=== PATIENT | male | born 1955 | race Caucasian/White ===

== ENCOUNTER 2018-12-05 10:40 | Inpatient (IN) | payer OTHER ==
[2018-12-05] MEDS ORDERED: NS 500 ML IV ONE (12:01)
[2018-12-05] MEDS ORDERED: IPRATROPIUM/ALBUTEROL 3 ML DEYVIAL IH ONE (12:01)
[2018-12-05] MEDS ORDERED: methylPREDNISolone SOD SUCC 125 MG/2 ML VIAL IVP ONE (12:01)
--- NOTE | 2018-12-05 12:01 | EDPHY ---
H & P Stated Complaint: Cough x 1 month Source: Patient Exam Limitations: No limitations - Personal History Current Tetanus Diphtheria and Acellular Pertussis (TDAP): Yes - Medical/Surgical History Hx Asthma: No Hx Chronic Respiratory Disease: No Hx Diabetes: Yes Hx Cardiac Disease: Yes Hx Renal Disease: Yes Hx Cirrhosis: No Hx Alcoholism: No Hx HIV/AIDS: No Hx Splenectomy or Spleen Trauma: No Other PMH: R Kidney Removed (Cancer), High Cholesterol, Hypertention, DM 2 - Social History Smoking Status: Never smoked Time Seen by Provider: 12/05/18 11:58 HPI/ROS: HPI: This is a 63-year-old male who presents with Chief Complaint: Cough x1 month Location: Chest Quality: Cough Duration: 1 month Signs and Symptoms: no shortness of breath at rest, no shortness of breath on exertion,+ productive cough white phlegm, no chest pain, no palpitations, no lower extremity edema, no wheezing, no orthopnea, no paroxysmal nocturnal dyspnea, no fever, no injury/trauma, no hemoptysis, no carpal pedal spasms Timing: Worsening Severity: Moderate Context: Patient has a history of hypertension, diabetes mellitus type 2, environmental exposure to dust with low oxygen but not requiring supplemental oxygen at this time presents with complaints of productive cough of white phlegm over the last 1 thing that has been slowly worsening. He reports that he coughs so hard that he vomits. Denies recent long distance travel, nonsmoker , no lower extremity edema. He was treated for a sinus infection with 10 days of antibiotics approximately 2 weeks ago. He cannot remember the name of the antibiotic. He denies any nasal congestion or upper respiratory symptoms at this time. Patient reports that he has "lots of meds" but cant remember them. Modifying Factors: See above Comment: ROS: A comprehensive 10 system review of systems is otherwise negative aside from elements mentioned in the history of present illness. MEDICAL/SURGICAL/SOCIAL HISTORY: Medical/Surgical history: R Kidney Removed (Cancer), High Cholesterol, Hypertention, DM 2 Social history: Never smoked. . CONSTITUTIONAL: Pleasant ill but nontoxic-appearing elderly white male, has a full white cervantes, awake and alert, no obvious distress HEENT: Atraumatic and normocephalic, PERRL, EOMI. Nares patent; no rhinorrhea; no nasal mucosal edema. Tympanic membranes clear. Oropharynx clear, no exudate and moist pink mucosa. Airway patent. No lymphadenopathy. No meningismus. Cardiovascular: Normal S1/S2, regular rate, regular rhythm, without murmur rub or gallop. PULMONARY/CHEST: Symmetrical and nontender. Clear to auscultation bilaterally diminished bibasilarly. Good air movement. No accessory muscle usage. ABDOMEN: Soft, nondistended, nontender, no rebound, no guarding, no peritoneal signs, no masses or organomegaly. No CVAT. EXTREMITIES: 2/2 pulses, strength 5/5, no deformities, no clubbing, no cyanosis or edema. NEUROLOGICAL: no focal neuro deficits. GCS 15. SKIN: Warm and dry, no erythema. no rash. Good capillary refill. (Veronica Casillas) Constitutional: Initial Vital Signs Temperature (C) 36.7 C 12/05/18 10:44 Heart Rate 107 H 12/05/18 10:44 Respiratory Rate 18 12/05/18 10:44 Blood Pressure 152/93 H 12/05/18 10:44 O2 Sat (%) 91 L 12/05/18 10:44 O2 Delivery Mode Room Air O2 (L/minute) 2 Allergies/Adverse Reactions: No Known Allergies Allergy (Unverified 12/05/18 10:43) Home Medications: Medication Instructions Recorded Fluticasone Propionate [Flovent 2 puffs PO BID 12/05/18 Hfa] Pioglitazone HCl 30 mg PO DAILY 12/05/18 metFORMIN HCL [Metformin HCl ER] 2,000 mg PO DAILY@1800 12/05/18 Albuterol Hfa Anes Only [Proair 2 puffs IH QID PRN #1 mdi 12/07/18 Hfa Icu (*)] Amoxicillin/Clavulanate Pot 875 mg PO BID #6 tab 12/07/18 [Augmentin 875 MG TAB (*)] Benzonatate [Tessalon Pearles] 200 mg PO TID PRN #30 cap 12/07/18 predniSONE 40 mg PO DAILY #6 tablet 12/07/18 Medical Decision Making ED Course/Re-evaluation: Vital signs reviewed and show heart rate of 107 and O2 sats 87-91% on room air and dropped to 86% with exertion. IV access, laboratory studies, chest x-ray, respiratory pathogen panel ordered Patient given 500 cc normal saline, DuoNeb, IV Solu-Medrol 125 mg, Tessalon Perles 200 mg 1243: Notified by RN that patient coughs so hard that he vomited. IV promethazine 12.5 mg given 1253: Chest x-ray radiology read shows: Retrocardiac opacity, as well as reticular opacities in the right infrahilar region. These findings probably represent atelectasis given low inspiratory volume, though would correlate with symptoms of pneumonia. Blood cultures and IV Rocephin/Zithromax given 1303: Notified by tech that D-dimer specimen rejected. Redrawn. 1318: Labs reviewed. WBC 12 K with left shift, sodium 134, potassium 4.8, creatinine 0.8, glucose 202, pro BNP 313 1338: D-dimer elevated; CTA chest ordered 1500: Called by radiologist, Dr. Phelps, who advised that CTA shows no pulmonary embolism, does show interstitial lung disease changes, hiatal hernia, atelectasis 1500:ED decision to consult hospitalist for community-acquired pneumonia and hypoxia. Spoke with Dr. Mata who kindly agrees to admit patient and provide further care. O2 sats currently 92% on 2 L nasal cannula. This patient was seen under the supervision of my secondary supervising physician. I evaluated care for this patient independently. (Veronica Casillas) Differential Diagnosis: Shortness of breath including but not limited to pulmonary infectious process, COPD, asthma, pulmonary embolus and congestive heart failure. (Veronica Casillas) Other Provider: The patient was evaluated and managed by the Physician Contracting Support Specialist. My co- signature indicates that I have reviewed this chart and I agree with the findings and plan of care as documented. I am the secondary supervising physician. (Fe Lewis) - Data Points Laboratory Results: Laboratory Results 12/05/18 12:33 12/05/18 12:33 Medications Given: Discontinued Medications Acetaminophen (Tylenol) 650 mg PO Q4HRS PRN PRN Reason: Pain, Mild/Fever, Can Take PO Stop: 06/03/19 17:03 Last Admin: 12/07/18 07:29 Dose: 650 mg Albuterol/Ipratropium (Duoneb) 3 ml IH EDNOW ONE Stop: 12/05/18 12:02 Last Admin: 12/05/18 12:27 Dose: 3 ml Albuterol/Ipratropium (Duoneb) 3 ml IH QID [facility] Stop: 06/03/19 20:59 Last Admin: 12/07/18 11:37 Dose: Not Given Benzonatate (Tessalon Pearles) 200 mg PO EDNOW ONE Stop: 12/05/18 12:04 Last Admin: 12/05/18 12:28 Dose: 200 mg Benzonatate (Tessalon Pearles) 200 mg PO TID PRN PRN Reason: Cough, Mild Stop: 06/03/19 17:08 Last Admin: 12/06/18 20:11 Dose: 200 mg Enoxaparin Sodium (Lovenox) 40 mg SC DAILY [facility] Stop: 06/03/19 18:44 Last Admin: 12/07/18 08:48 Dose: 40 mg Fluticasone Propionate (Flovent Hfa) 2 puffs IH BID [facility] Stop: 06/03/19 20:59 Last Admin: 12/07/18 10:56 Dose: 2 puffs Guaifenesin (Robitussin Oral Liquid 200mg/10ml) 200 mg PO Q4HRS PRN PRN Reason: Cough, Mild Stop: 06/04/19 20:11 Last Admin: 12/07/18 02:10 Dose: 200 mg Sodium Chloride (Ns) 500 mls @ 1,000 mls/hr IV EDNOW ONE PRN Reason: Protocol Stop: 12/05/18 12:30 Last Admin: 12/05/18 12:27 Dose: 500 mls Azithromycin 500 mg/ Dextrose 255 mls @ 255 mls/hr IV EDNOW ONE PRN Reason: Protocol Stop: 12/05/18 13:52 Last Admin: 12/05/18 15:02 Dose: 255 mls Ceftriaxone Sodium 2 gm/ (Sodium Chloride) 50 mls @ 100 mls/hr IV EDNOW ONE PRN Reason: Protocol Stop: 12/05/18 13:22 Last Admin: 12/05/18 14:43 Dose: 50 mls Sodium Chloride (Ns) 1,000 mls @ 100 mls/hr IV CONT NETO Stop: 06/03/19 17:14 Last Admin: 12/07/18 00:48 Dose: 1,000 mls Azithromycin 500 mg/ Sodium (Chloride) 255 mls @ 255 mls/hr IV DAILY NETO PRN Reason: Protocol Stop: 01/05/19 08:59 Last Admin: 12/07/18 07:29 Dose: 255 mls Ceftriaxone Sodium/Dextrose (Rocephin 1 Gm (Premix)) 50 mls @ 100 mls/hr IV DAILY [facility] Stop: 01/05/19 15:59 Last Admin: 12/07/18 08:46 Dose: 50 mls Insulin Human Lispro (Humalog Lispro) 0 unit SC TIDMEAL NETO PRN Reason: Protocol Stop: 06/03/19 17:59 Last Admin: 12/07/18 12:59 Dose: 6 units Insulin Human Lispro (Humalog Lispro) 8 unit SC ONCE ONE Stop: 12/05/18 23:38 Last Admin: 12/05/18 23:50 Dose: 8 units Methylprednisolone Sodium Succinate (Solu-Medrol) 125 mg IVP EDNOW ONE Stop: 12/05/18 12:02 Last Admin: 12/05/18 12:27 Dose: 125 mg Pioglitazone HCl (Actos) 30 mg PO DAILY NETO Stop: 06/04/19 08:59 Last Admin: 12/07/18 08:48 Dose: 30 mg Prednisone (Prednisone) 40 mg PO ONCE ONE Stop: 12/07/18 14:01 Last Admin: 12/07/18 14:24 Dose: 40 mg Promethazine HCl (Phenergan) 12.5 mg IVP EDNOW ONE Stop: 12/05/18 12:48 Last Admin: 12/05/18 12:52 Dose: 12.5 mg Departure - Departure Disposition: [facility] Acute Clinical Impression: Hypoxia, Interstitial lung disease, Hiatal hernia without gangrene and obstruction Community acquired pneumonia Qualifiers: Laterality: left Lung location: lower lobe of lung Qualified Code(s): J18.1 - Lobar pneumonia, unspecified organism Condition: Fair
[2018-12-05] MEDS ORDERED: BENZONATATE 100 MG CAP PO ONE (12:03)
[2018-12-05 12:43] LABS: PLATELET COUNT 257 10^3/uL (150-400)
[2018-12-05] MEDS ORDERED: PROMETHAZINE HCL 25 MG/ML INJ IVP ONE (12:47)
[2018-12-05] MEDS ORDERED: AZITHROMYCIN IV 500 MG in D5W 250 ML IV ONE (12:53)
[2018-12-05] MEDS ORDERED: IOPAMIDOL (ISOVUE 370) 100 ML BTL IV ONE (13:42)
[2018-12-05] MEDS ORDERED: ONDANSETRON DISINTEGRATING 4 MG TAB PO PRN (17:04)
[2018-12-05] MEDS ORDERED: ONDANSETRON 4 MG/2 ML VIAL IVP PRN (17:04)
[2018-12-05] MEDS ORDERED: D50W 25 GM/50 ML SYR IVP PRN (17:07)
[2018-12-05] MEDS ORDERED: PROMETHAZINE HCL 25 MG/ML INJ IVP PRN (17:09)
--- NOTE | 2018-12-05 17:20 | PDGENHP ---
<Mar Mark - Last Filed: 12/05/18 18:47> History and Physical - Chief Complaint Cough for one month - History of Present Illness 63 y/o male with history of hypertension and diabetes II presents with a productive cough that began approximately one month ago. He produces white phlegm and sometimes he coughs so hard he vomits. Denies hematochezia. He reports having cold-like symptoms (nasal congestion and cough) a month ago but didn't do much about it until 2 weeks ago where he went to his PCP in [place] (Dr. Belkys Hewitt) and was diagnosed with a sinus infection; he was given a 10-day course of antibiotics. He denies nasal congestion now but continues to have a cough. For the past week, he has attempted daily use of cough syrup. Endorses exertional shortness of breath that began around the same time of his cough. It is alleviated with rest. Denies orthopnea or bilateral lower extremity edema or tenderness. No chest pains. He is being admitted for further diagnostic work-up and monitoring. Past Medical/Surgical 1. Hypertension 2. Hyperlipidemia 3. Diabetes II 4. Right kidney removed (cancer) Social 1. , lives in [place]. 2. Denies tobacco or illicit drug use. Denies alcohol use. 3. 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 History Information - Allergies/Home Medication List Allergies/Adverse Reactions: No Known Allergies Allergy (Unverified 12/05/18 10:43) Home Medications: Fluticasone Propionate [Flovent Hfa] 2 puffs PO BID 12/05/18 [Last Taken ] Pioglitazone HCl 30 mg PO DAILY 12/05/18 [Last Taken 12/05/18] metFORMIN HCL [Metformin HCl ER] 2,000 mg PO DAILY@1800 12/05/18 [Last Taken 05/17] I have personally reviewed and updated: family history, medical history, social history, surgical history Past Medical History: See HPI list - Surgical History Additional surgical history: See HPI list - Family History Positive for: lung disease (Father) - Social History Smoking Status: Never smoked Alcohol Use: Sober Drug Use: None Review of Systems Review of Systems: ROS: 10pt was reviewed & negative except for what was stated in HPI & below Constitutional: Reports: diaphoresis, recent illness EENMT: Reports: no symptoms Cardiac: Reports: no symptoms Respiratory: Reports: cough, shortness of breath (Exertional) Gastrointestinal: Reports: vomitting (With hard coughing), diarrhea, nausea ( Mild) Genitourinary: Reports: no symptoms Muscolosketal: Reports: no symptoms Skin: Reports: no symptoms Neurological: Reports: no symptoms Hematologic/Lymphatic: Reports: no symptoms Immunologic/Allergy: Reports: no symptoms Physical Exam Physical Exam: Lab data and imaging reviewed Temp Pulse Resp BP Pulse Ox 37.0 C 102 H 16 136/81 H 92 12/05/18 16:45 12/05/18 16:45 12/05/18 16:45 12/05/18 16:45 12/05/18 16:45 Constitutional: no apparent distress, appears nourished, not in pain Eyes: PERRL, anicteric sclera, EOMI Ears, Nose, Mouth, Throat: moist mucous membranes, hearing normal, ears appear normal, no oral mucosal ulcers Cardiovascular: regular rate and rhythym, no murmur, rub, or gallop, No edema Peripheral Pulses: 2+: dorsalis-pedis (R) (Radial 2+), dorsalis-pedis (L) ( Radial 2+) Respiratory: reduced air movement (Bilateral lower lobes) Gastrointestinal: normoactive bowel sounds, soft, non-tender abdomen, no palpable masses Genitourinary: no bladder fullness, no bladder tenderness Skin: warm, normal color, no rashes or abrasions, no fluctuance, no induration, No mottled Musculoskeletal: full muscle strength, no muscle tenderness, normal joint ROM, no joint effusions Neurologic: AAOx3, sensation intact bilaterally, CN II-XII Intact Psychiatric: interacting appropriately, not anxious, not encephalopathic, thought process linear Lymph, Heme, Immunologic: no cervical LAD, no supraclavicular LAD Lab Data & Imaging Review 12/05/18 12:33 12/05/18 12:33 WBC 12.32 10^3/uL (3.80-9.50) H 12/05/18 12:33 RBC 6.08 10^6/uL (4.40-6.38) 12/05/18 12:33 Hgb 16.6 g/dL (13.7-17.5) 12/05/18 12:33 Hct 51.7 % (40.0-51.0) H 12/05/18 12:33 MCV 85.0 fL (81.5-99.8) 12/05/18 12:33 MCH 27.3 pg (27.9-34.1) L 12/05/18 12:33 MCHC 32.1 g/dL (32.4-36.7) L 12/05/18 12:33 RDW 14.7 % (11.5-15.2) 12/05/18 12:33 Plt Count 257 10^3/uL (150-400) 12/05/18 12:33 MPV 10.0 fL (8.7-11.7) 12/05/18 12:33 Neut % (Auto) 79.3 % (39.3-74.2) H 12/05/18 12:33 Lymph % (Auto) 8.5 % (15.0-45.0) L 12/05/18 12:33 [place] % (Auto) 10.8 % (4.5-13.0) 12/05/18 12:33 Eos % (Auto) 0.4 % (0.6-7.6) L 12/05/18 12:33 Baso % (Auto) 0.5 % (0.3-1.7) 12/05/18 12:33 Nucleat RBC Rel Count 0.0 % (0.0-0.2) 12/05/18 12:33 Absolute Neuts (auto) 9.77 10^3/uL (1.70-6.50) H 12/05/18 12:33 Absolute Lymphs (auto) 1.05 10^3/uL (1.00-3.00) 12/05/18 12:33 Absolute Monos (auto) 1.33 10^3/uL (0.30-0.80) H 12/05/18 12:33 Absolute Eos (auto) 0.05 10^3/uL (0.03-0.40) 12/05/18 12:33 Absolute Basos (auto) 0.06 10^3/uL (0.02-0.10) 12/05/18 12:33 Absolute Nucleated RBC 0.00 10^3/uL (0-0.01) 12/05/18 12:33 Immature Gran % 0.5 % (0.0-1.1) 12/05/18 12:33 Immature Gran # 0.06 10^3/uL (0.00-0.10) 12/05/18 12:33 D-Dimer 3.58 ug/mLFEU (0.00-0.50) H 12/05/18 13:00 Sodium 134 mEq/L (135-145) L 12/05/18 12:33 Potassium 4.8 mEq/L (3.5-5.2) 12/05/18 12:33 Chloride 100 mEq/L (97-110) 12/05/18 12:33 Carbon Dioxide 25 mEq/l (22-31) 12/05/18 12:33 Anion Gap 9 mEq/L (6-14) 12/05/18 12:33 BUN 13 mg/dL (7-23) 12/05/18 12:33 Creatinine 0.8 mg/dL (0.7-1.3) 12/05/18 12:33 Estimated GFR > 60 12/05/18 12:33 Glucose 223 mg/dL (70-100) H 12/05/18 12:33 Calcium 9.9 mg/dL (8.5-10.4) 12/05/18 12:33 NT-Pro-B Natriuret Pep 313 pg/mL (0-125) H 12/05/18 12:33 Assessment & Plan Assessment: 63 y/o male presenting with one month of productive cough and hypoxia on room air. He reports for a few years now, he has been told of his low oxygen level and he figured he would need to have supplemental oxygen someday. He was recently treated for his sinus infection but continues to experience a cough. 1. Community acquired pneumonia: s/p sinus infection. CXR and chest/thorax CTA suggest pneumonia and underlying interstitial lung disease, no pulmonary embolism. Mild leukocytosis (12.32), elevation of d-dimer (3.58), acute hypoxia (87% RA --> 92% 2LNC). Respiratory PCR negative. -Blood cultures pending -Procalcitonin pending -Received Rocephin 2 gm IV and Azithromycin 500 mg IV in ED; he will receive the same medications tomorrow QD -Cont pulse ox -Duoneb treatments QID -IVF -May give Tessalon Pearles for his cough -May given Zofran and/or Phenergan for nausea -Incentive spirometry 2. Acute hypoxemic respiratory failure: currently requires 2L NC to oxygenate above 90%. No respiratory distress. -See above, cont pulse ox monitoring -Would consider room air challenge tomorrow afternoon/evening -Incentive spirometry; imaging revealed atelectasis 3. Diabetes: he is unsure what his most recent A1c is but he thinks it might be 8%. He uses an insulin pen BID, metformin, and pioglitazone -He will be placed on an insulin sliding scale -Holding his home diabetic medications for the time being -Checking his A1c; an uncontrolled diabetic has the potential for delayed healing 4. Hypertension: this is stable for now. He apparently takes many medications but cannot remember these. Continue to monitor his BP and notify detention attendant physician should there be a significant change in blood pressure or symptoms arise. 5. Hyperlipidemia: see hypertension. 6. Hyponatremic (134): this is mild, continue to monitor. IVF. Diet: Carb-controlled VTE ppx: SCDs, Lovenox subq Code: Full Dispo: Admit to inpatient <Duy Mata - Last Filed: 12/05/18 21:22> History and Physical - History of Present Illness Review of Systems Review of Systems: Physical Exam Physical Exam: Temp Pulse Resp BP Pulse Ox 37.4 C 112 H 18 143/87 H 92 12/05/18 20:00 12/05/18 20:00 12/05/18 20:00 12/05/18 20:00 12/05/18 20:00 O2 (L/minute) 2 Lab Data & Imaging Review 12/05/18 12:33 12/05/18 12:33 WBC 12.32 10^3/uL (3.80-9.50) H 12/05/18 12:33 RBC 6.08 10^6/uL (4.40-6.38) 12/05/18 12:33 Hgb 16.6 g/dL (13.7-17.5) 12/05/18 12:33 Hct 51.7 % (40.0-51.0) H 12/05/18 12:33 MCV 85.0 fL (81.5-99.8) 12/05/18 12:33 MCH 27.3 pg (27.9-34.1) L 12/05/18 12:33 MCHC 32.1 g/dL (32.4-36.7) L 12/05/18 12:33 RDW 14.7 % (11.5-15.2) 12/05/18 12:33 Plt Count 257 10^3/uL (150-400) 12/05/18 12:33 MPV 10.0 fL (8.7-11.7) 12/05/18 12:33 Neut % (Auto) 79.3 % (39.3-74.2) H 12/05/18 12:33 Lymph % (Auto) 8.5 % (15.0-45.0) L 12/05/18 12:33 [place] % (Auto) 10.8 % (4.5-13.0) 12/05/18 12:33 Eos % (Auto) 0.4 % (0.6-7.6) L 12/05/18 12:33 Baso % (Auto) 0.5 % (0.3-1.7) 12/05/18 12:33 Nucleat RBC Rel Count 0.0 % (0.0-0.2) 12/05/18 12:33 Absolute Neuts (auto) 9.77 10^3/uL (1.70-6.50) H 12/05/18 12:33 Absolute Lymphs (auto) 1.05 10^3/uL (1.00-3.00) 12/05/18 12:33 Absolute Monos (auto) 1.33 10^3/uL (0.30-0.80) H 12/05/18 12:33 Absolute Eos (auto) 0.05 10^3/uL (0.03-0.40) 12/05/18 12:33 Absolute Basos (auto) 0.06 10^3/uL (0.02-0.10) 12/05/18 12:33 Absolute Nucleated RBC 0.00 10^3/uL (0-0.01) 12/05/18 12:33 Immature Gran % 0.5 % (0.0-1.1) 12/05/18 12:33 Immature Gran # 0.06 10^3/uL (0.00-0.10) 12/05/18 12:33 D-Dimer 3.58 ug/mLFEU (0.00-0.50) H 12/05/18 13:00 Sodium 134 mEq/L (135-145) L 12/05/18 12:33 Potassium 4.8 mEq/L (3.5-5.2) 12/05/18 12:33 Chloride 100 mEq/L (97-110) 12/05/18 12:33 Carbon Dioxide 25 mEq/l (22-31) 12/05/18 12:33 Anion Gap 9 mEq/L (6-14) 12/05/18 12:33 BUN 13 mg/dL (7-23) 12/05/18 12:33 Creatinine 0.8 mg/dL (0.7-1.3) 12/05/18 12:33 Estimated GFR > 60 12/05/18 12:33 Glucose 223 mg/dL (70-100) H 12/05/18 12:33 POC Glucose 291 mg/dL (70-100) H 12/05/18 17:56 Calcium 9.9 mg/dL (8.5-10.4) 12/05/18 12:33 NT-Pro-B Natriuret Pep 313 pg/mL (0-125) H 12/05/18 12:33 Procalcitonin 0.30 ng/mL (0.02-0.10) H 12/05/18 12:33 Assessment & Plan Assessment: I have seen the patient and reviewed in detail with eVronica Casillas and with Fe Mark NP. The patient actually does not appear to me to have a pneumonia, has no fever and has a very normal appearing CT chest. He has acute on Chronic resp failure. He tells me he has had long standing awake hypoxemia, and was tested for sleep apnea "but I tore the mask off in the middle of the night so they couldn't finish the test" (I interpret this as sleep apnea was found but he does not recall a specific result of the test and did not want to have any further assessment at the time). He is obese, nonsmoker, no hx of 2nd hand smoke exposure, and no hx of asthma. 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 Father was a underground miner with apparent inhalation related issues. He has a few weeks of acute cough and sweats with no fever and no infiltrates on CT, no response to outpt abx. Resp path panel is negative. I believe he likely has some infection causing acute respiratory episode, but whatever it is is not showing itself well clinically or by CT. He does have a mildly elevated procalcitionin, uncertain what the significance of that is with normal CT. (I do not see mucous plugging on CT) Dx: * acute hypox resp failure * chroinc hypox resp failure (almost certainly KATERIN, likely Obesity hypovent syndr, ? other chronic lung dz, ? pulm HTN) * possible inhalation lung exposure from pulverizing road material including granite and other rocks * diabetes mellitus * obesity * essential htn My recommendations: * admission * oxygen * PFTs (I have ordered) * pulmonology consult * monitor for nocturnal resp issues (I have reviewed with resp therapy) * ? high res CT chest * ? bronch if sxs don't resolve * hold metformen for [address] angio * prn insulin for now
[2018-12-05] MEDS: INSULIN LISPRO 100 UNIT/ML SC SCH (18:29)
[2018-12-05] MEDS ORDERED: MELATONIN 3 MG TAB PO SCH (21:00)
[2018-12-05] MEDS: IPRATROPIUM/ALBUTEROL 3 ML DEYVIAL IH SCH (21:16)
[2018-12-05] MEDS: FLUTICASONE HFA 220 MCG MDI IH SCH (21:18)
[2018-12-05] MEDS: BENZONATATE 100 MG CAP PO PRN (21:47)
[2018-12-05] MEDS: ENOXAPARIN 40 MG/0.4 ML SYR SC SCH (21:47)
[2018-12-05] MEDS ORDERED: INSULIN LISPRO 100 UNIT/ML SC ONE (23:37)
[2018-12-06 04:05] LABS: PLATELET COUNT 234 10^3/uL (150-400)
[2018-12-06] MEDS: IPRATROPIUM/ALBUTEROL 3 ML DEYVIAL IH SCH ×4 (05:09→20:30)
[2018-12-06] MEDS: NS 1,000 ML IV SCH (05:42)
[2018-12-06] MEDS: INSULIN LISPRO 100 UNIT/ML SC SCH ×3 (07:52→18:16)
[2018-12-06] MEDS ORDERED: INSULIN LISPRO 100 UNIT/ML SC SCH (08:00)
[2018-12-06] MEDS: ENOXAPARIN 40 MG/0.4 ML SYR SC SCH (08:10)
[2018-12-06] MEDS: AZITHROMYCIN IV 500 MG in NS 250 ML IV SCH (08:10)
[2018-12-06] MEDS: ACETAMINOPHEN 325 MG TAB PO PRN ×3 (08:10→20:10)
[2018-12-06] MEDS: PIOGLITAZONE HCL 15 MG TAB PO SCH (08:10)
--- NOTE | 2018-12-06 08:34 | PDMN ---
Medical Necessity Medical necessity: Pt meets inpt criteria per MD order and MCG [id number], Pneumonia , Community Acquired. 63 y/o presenting w/cough and shortness of breath w/ [id number], recently given abx's outpt for sinus infection, admitted now w/ community acquired pneumonia and hypoxia (87% on RA), requiring 2LO2 to keep sats>90%, tachycardia HR 100-112 . CXR and chest CTA suggest pna and undelying interstitial lung disease. PMH includes HTN, diabetes II, Renal Ca w/R nephrectomy. Anticipate>2MN for ongoing management of above.
[2018-12-06] MEDS: FLUTICASONE HFA 220 MCG MDI IH SCH ×2 (08:48→20:28)
--- NOTE | 2018-12-06 12:46 | ASMTCMCOM ---
CM Note CM Note Notes: Patient plan of care reviewed in rounds. He is a 63 year old male admitted with cough. He has diagnosis of pneumonia. Has history of diabetes as well. No current needs identified. CM available should needs arise. Plan: TBD Date Signed: 12/06/2018 12:45 PM Electronically Signed By:Marilyn Soto RN
[2018-12-06] MEDS: BENZONATATE 100 MG CAP PO PRN (20:11)
[2018-12-06] MEDS ORDERED: guaiFENesin 200 MG/10 ML UDL PO PRN (20:12)
--- NOTE | 2018-12-06 20:13 | HOSPPROG ---
Hospitalist Progress Note Assessment/Plan: The patient is a 63-year-old male hypertension, diabetes with PMH hypertension, diabetes, 1 kidney who was admitted for acute community-acquired pneumonia. He had failed outpt Abx started for sinusitis 2 weeks ago. ASSESSMENT/PLAN: Acute bronchitis Acute hypoxemic respiratory failure, on O2 Probable KATERIN Atelectasis Morbid obesity Single kidney (h/o renal cancer) DM2 HLD HTN Hiatal hernia -Congestion is improving. SVNs, guaifenesin, O2 prn. -Pt may just have bronchitis. Continue ceftriaxone. Add guaifenesin. Continue flutter valve use. -PT/ISU. -Consider Pulm consult if resp status does not improve, since pt has h/o environmental exposures that could cause pneumonitis and such. VTE prophylaxis: Lovenox Code Status: Full code Status: Inpatient for > 2 midnight stay. Disposition: [facility] ____ SUBJECTIVE: Today the patient feels improved. He still requires oxygen. He has been expectorating. Flutter valve is very helpful. OBJECTIVE: Physical Exam: General: The patient is an obese male who is alert and in no acute distress. HEENT: normocephalic, extraocular movements intact, conjunctivae clear. Mucous membranes moist. Neck: trachea midline, no visible masses. CV: +S1/S2, RRR, no MRG. Resp: unlabored, CTAB with bibasilar rales. Abd: soft and nondistended. Musculoskeletal: Normal muscle tone/bulk. Neuro: cranial nerves II XII grossly intact. Intact gross motor and sensory function. Psych: Appropriate mood and affect affect. Skin: No pallor. No petechiae. Heme/lymph: No peripheral edema at bilateral lower extremities. Labs/Imaging/Other Tests: Personally reviewed/interpreted. Objective: Vital Signs Temp Pulse Resp BP Pulse Ox 37.2 C 96 20 125/77 H 92 12/06/18 19:46 12/06/18 19:46 12/06/18 19:46 12/06/18 19:46 12/06/18 19:46 Laboratory Results 12/06/18 03:50 12/06/18 03:50 12/05/18 12/06/18 12/07/18 05:59 05:59 05:59 Intake Total 0359 9031 Output Total 5804 575 Balance 971 [id number] - Time Spent With Patient Time Spent with Patient: greater than 35 minutes Time Spent with Patient: Greater than 35 minutes spent on this patients care, greater than 50% of time spent counseling, educating, and coordinating care regarding the above mentioned plan. ICD10 Worksheet Patient Problems: Problems Problem Status Onset Community acquired pneumonia Acute Hiatal hernia without gangrene and obstruction Acute Hypoxia Acute Interstitial lung disease Acute
[2018-12-07] MEDS: NS 1,000 ML IV SCH (00:48)
[2018-12-07] MEDS: ACETAMINOPHEN 325 MG TAB PO PRN ×2 (02:10→07:29)
[2018-12-07 05:46] LABS: PLATELET COUNT 207 10^3/uL (150-400)
[2018-12-07] MEDS: IPRATROPIUM/ALBUTEROL 3 ML DEYVIAL IH SCH ×2 (05:57→11:37)
[2018-12-07] MEDS: INSULIN LISPRO 100 UNIT/ML SC SCH ×2 (07:29→12:59)
[2018-12-07] MEDS: AZITHROMYCIN IV 500 MG in NS 250 ML IV SCH (07:29)
[2018-12-07] MEDS: ENOXAPARIN 40 MG/0.4 ML SYR SC SCH (08:48)
[2018-12-07] MEDS: PIOGLITAZONE HCL 15 MG TAB PO SCH (08:48)
[2018-12-07] MEDS: FLUTICASONE HFA 220 MCG MDI IH SCH (10:56)
[2018-12-07 12:18] VITALS: BP 135/83
[2018-12-07] MEDS ORDERED: predniSONE 20 MG TAB PO ONE (14:00)
--- NOTE | 2018-12-07 14:30 | PDDCSUM ---
Discharge Summary Discharge Summary: The patient is a 63-year-old male hypertension, diabetes with PMH hypertension, diabetes, 1 kidney who was admitted for acute community-acquired pneumonia. He had failed outpt Abx. He was admitted and started on Rocephin and Azithromycin ( high dose). He was started on Prednisone on the day of d/c. He will continue course of abx and has been transitioned to Augment. He will also cont a short course of Prednisone burst. DDX Acute bronchitis, steroids, bronchodilator Acute hypoxemic respiratory failure, on O2, now on RA Probable KATERIN Atelectasis Morbid obesity Single kidney (h/o renal cancer) DM2, Hyperglycemia. A1C is pending. He will f/u with his PCP HLD HTN Hiatal hernia Physical Exam: General: The patient is an obese male who is alert and in no acute distress. HEENT: normocephalic, extraocular movements intact, conjunctivae clear. Mucous membranes moist. Neck: trachea midline, no visible masses. CV: +S1/S2, RRR, no MRG. Resp: unlabored Abd: soft and nondistended. Musculoskeletal: Normal muscle tone/bulk. Neuro: cranial nerves II XII grossly intact. Intact gross motor and sensory function. Psych: Appropriate mood and affect affect. Skin: No pallor. No petechiae. Heme/lymph: No peripheral edema at bilateral lower extremities. Meds: see med rec f/u: with PCP on . total time spent on d/c is 35 mins.
--- NOTE | 2018-12-07 14:52 | ASDISCHSUM ---
Discharge Information Plan Status:Home with No Needs Medically Cleared to Leave:12/06/2018 Discharge Date:12/07/2018 02:46 PM CM D/C Disposition: ADT D/C Disposition:Home, Routine, Self-Care Projected Discharge Date:12/07/2018 02:46 PM Transportation at D/C: Discharge Delay Reason: Follow-Up Date:12/07/2018 02:46 PM Discharge Slot: Final Diagnosis: Placement Information Patient Contact Information Contact Name:TYRA Relationship: Address:[address] Work Phone: City:[place] Alternate Phone: State/Zip Code:[place] [address] Email: Financial Information Financial Class:BC Primary Plan Desc:BALTAZAR GAMINO PPO O Primary Plan Number:[id number] Secondary Plan Desc: Secondary Plan Number: Assessment Information LACE LACE Length of stay for Answers: 1 day current admission Acuity / Level of Answers: Yes Care: Did the patient have an inpatient admission? Comorbidities - select Answers: Diabetes (uncontrolled or all that apply controlled) Mild liver or renal disease Other Notes: HTN; HLD # of Emergency department Answers: 1-2 visits in the last 6 months Score: 9 Date Signed: 12/07/2018 02:51 PM Electronically Signed By:Marilyn Soto RN [facility] CM Progress Note CM Note CM Note Notes: Patient plan of care reviewed in rounds. He is a 63 year old male admitted with cough. He has diagnosis of pneumonia. Has history of diabetes as well. No current needs identified. CM available should needs arise. Plan: TBD Date Signed: 12/06/2018 12:45 PM Electronically Signed By:Marilyn Soto RN Intervention Information
--- NOTE | 2018-12-07 15:02 | ASMTCMCOM ---
CM Note CM Note Notes: Patient plan of care reviewed in rounds. To dc to home no needs at this time. CM avialable should needs arise. Plan: dc to home no needs. Date Signed: 12/07/2018 03:01 PM Electronically Signed By:Marilyn Soto RN
== END 2018-12-07 14:46 | disposition home or self-care (01) | DRG 193 ==
LOC: F1N 16:38
PROVIDERS: ADMIT Internal Medicine; ATTEND Internal Medicine
DX: J18.9 Pneumonia, unspecified organism (principal); J20.9 Acute bronchitis, unspecified; J96.01 Acute respiratory failure with hypoxia; G47.33 Obstructive sleep apnea (adult) (pediatric); E11.65 Type 2 diabetes mellitus with hyperglycemia; E87.1 Hypo-osmolality and hyponatremia; E66.9 Obesity, unspecified; Z68.39 Body mass index [BMI] 39.0-39.9, adult; K44.9 Diaphragmatic hernia without obstruction or gangrene; I10 Essential (primary) hypertension; Z85.528 Personal history of other malignant neoplasm of kidney; Z90.5 Acquired absence of kidney
CPT/HCPCS: 96365; J0456; J0696; J1650; J1815; J2550; J2930; J7512; Q9967

== ENCOUNTER 2018-12-30 04:26 | Inpatient (IN) | payer OTHER ==
--- NOTE | 2018-12-30 04:37 | EDPHY ---
H & P Stated Complaint: HASN'T PEED IN 2 DAYS Time Seen by Provider: 12/30/18 04:37 HPI/ROS: HPI CHIEF COMPLAINT: Nausea, vomiting, diarrhea, can't keep fluids down, decreased urine output. HISTORY OF PRESENT ILLNESS: 63-year-old male, morbidly obese, presents to the emergency room nausea vomiting and diarrhea and he has noticed over the last 2- 3 days he has had decreased urine output. Patient states that he has not fully recovered from pneumonia last month he completed a course of antibiotics. However been having ongoing nausea vomiting and diarrhea over the last 3 days and unable to tolerate p.o.. Abdominal bloating. No significant pain. Denies chest pain. Denies fever. His main concern is that he has 1 single kidney and had decreased urine output over the last 3 days with dark colored urine. He is concerned that he is dehydrated Patient arrived to the emergency room is noted be tachycardic. He is coughing. Otherwise no distress. Past Medical History: Community-acquired pneumonia, hypertension, renal cell carcinoma with 1 kidney Past Surgical History: No recent surgery history renal cell carcinoma with surgery Social History: Denies drugs alcohol tobacco. Family History: Noncontributory ROS REVIEW OF SYSTEMS: 10 Systems were reviewed and negative with the exception of the elements mentioned in the history of present illness. Exam Constitutional triage nursing summary reviewed, vital signs reviewed, awake/ alert. Tachycardic, room air sat 91%. Eyes normal conjunctivae and sclera, EOMI, PERRLA. HENT normal inspection, atraumatic, dry mucus membranes, no epistaxis, neck supple/ no meningismus, no raccoon eyes. Respiratory clear to auscultation bilaterally, normal breath sounds, no respiratory distress, no wheezing. Cardiovascular rate normal, regular rhythm, no murmur, no edema, distal pulses normal. Gastrointestinal soft, non-tender, no rebound, no guarding, normal bowel sounds, no distension, no pulsatile mass. Genitourinary no CVA tenderness. Musculoskeletal no midline vertebral tenderness, full range of motion, no calf swelling, no tenderness of extremities, no meningismus, good pulses, neurovascularly intact. Skin pink, warm, & dry, no rash, skin atraumatic. Neurologic awake, alert and oriented x 3, AAOx3, moves all 4 extremities equally, motor intact, sensory intact, CN II-XII intact, normal cerebellar, normal vision, normal speech. Psychiatric normal mood/affect. Heme/Lymph/Immune no lymphadenopathy. Differential Diagnosis: Includes but is not limited to in a particular order dehydration, electrolyte disturbance, C diff due to recent antibiotics, GI illness, volume depletion, acute kidney injury, infection, UTI. Medical Decision Making: Plan for this patient IV establishment IV fluid bolus 2 L, Zofran as needed for nausea, electrolytes, urine, EKG for tachycardia and re-evaluate, obtain stool studies. Re-evaluation: 0535: EKG interpretation by me on record in [employer] system. Impression time of EKG 5:26 a.m., sinus tach rate of 118, no acute ischemia. Labs have been reviewed, sodium is low 125, case slightly elevated. I believe the patient is volume depleted dehydrated. The patient receiving 1 L fluid. Patient need to be admitted the hospital for dehydration volume depletion. He has been having diarrhea. I have ordered stool studies. Plan for hospital admission. The patient's chest x-ray shows stability from his previous chest x-ray. I will consult the hospitalist service Dr. Rosa for admission. Patient also noted to have a elevated white blood cell count 52246 with left shift. Patient has elevated lactic acid. I believe this to be due to dehydration less likely sepsis. The patient is afebrile. Patient's main complaint nausea vomiting and diarrhea. Patient appears clinically dehydrated Patient is getting his 1st L fluid. Patient need to be admitted to the hospitalist service for dehydration nausea vomiting diarrhea I have asked for stool studies. CT scan abdomen pelvis pending for diarrhea and abdominal bloating. 6:27 a.m.. I have asked the hospitalist service to admit the patient. Spoke with Dr. Perla Cordero who accepts the admission. Plan for admission. The patient CT scan abdomen pelvis without contrast has been reviewed shows abnormal esophageal wall thickening, and abnormal lymphadenopathy which is concerning. Additionally liver cirrhosis. Also please see full dictation report faxed to me by [facility] at 6:19 a.m.. Please see the report for full details. Given the patient's dehydration, nausea, vomiting, diarrhea, abnormal electrolytes and abnormal CT scan he will be admitted to the hospitalist service for further evaluation. Patient be made NPO by the hospitalist service GI will need to see the patient. Source: Patient - Personal History Current Tetanus Diphtheria and Acellular Pertussis (TDAP): Yes - Medical/Surgical History Hx Asthma: No Hx Chronic Respiratory Disease: No Hx Diabetes: Yes Hx Cardiac Disease: Yes Hx Renal Disease: Yes Hx Cirrhosis: No Hx Alcoholism: No Hx HIV/AIDS: No Hx Splenectomy or Spleen Trauma: No Other PMH: R Kidney Removed (Cancer), High Cholesterol, Hypertention, DM 2, back surgeries, "bad disks" - Social History Smoking Status: Never smoked Constitutional: Initial Vital Signs Temperature (C) 36.7 C 12/30/18 04:32 Heart Rate 121 H 12/30/18 04:32 Respiratory Rate 16 12/30/18 04:32 Blood Pressure 157/103 H 12/30/18 04:32 O2 Sat (%) 91 L 12/30/18 04:32 O2 Delivery Mode Room Air Allergies/Adverse Reactions: No Known Allergies Allergy (Verified 12/30/18 04:31) Home Medications: Medication Instructions Recorded Benzonatate [Tessalon Pearles] 200 mg PO TID PRN #30 cap 12/07/18 Albuterol [Proventil Inhaler HFA 1 - 2 puffs IH Q4H PRN 12/30/18 (*)] Codeine Phosphate/Guaifenesin 10 ml PO Q8HRS PRN 12/30/18 [Guaifenesin-Codeine Syrup] Fluconazole [Diflucan] 200 mg PO DAILY 12/30/18 Fluticasone Hfa 220 Mcg [Flovent 2 puffs IH BID 12/30/18 220 MCG Hfa MDI (*)] Omeprazole 40 mg PO DAILY 12/30/18 guaiFENesin [Mucinex 600 MG (*)] 600 mg PO BID 12/30/18 metFORMIN SR [Glucophage XR 500 mg 2,000 mg PO DAILY@1800 12/30/18 (*)] Medical Decision Making - Diagnostics Imaging Results: Imaging Impressions Chest X-Ray 12/30/18 04:45 Impression: 1. Bilateral lower lobe linear subsegmental atelectasis. 2. No definite pneumonia. Abdomen/Pelvis CT 12/30/18 05:36 Impression: 1. Cholelithiasis without biliary ductal dilation. 2. 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 3. Nodular contour of the liver with mild hepatomegaly. Hepatic metastasis cannot be excluded. 4. Prior right nephrectomy. 5. Left perinephric fluid without nephrolithiasis or hydronephrosis. 6. Degenerative lumbar spine. Please see above findings. Attention: This CT examination is specifically designed to evaluate patients who are clinically suspected of having acute obstructive uropathy. This examination does not use radiographic contrast, and as such, provides only a limited evaluation of the abdomen, pelvis and retroperitoneum. If there is further clinical suspicion for pathological conditions other than obstructive uropathy, a complete CT evaluation of the abdomen and pelvis utilizing intravenous, oral, and rectal contrast should be considered. Preliminary report given by [facility] to Emergency Department physician, Dr. Jem Wills at 0619 hours on December 30, 2018. Final report concurs with initial preliminary interpretation. - Data Points Laboratory Results: Laboratory Results 12/30/18 04:55 12/30/18 04:55 12/30/18 04:35 Carcinoembryonic Ag 2270.00 ng/mL H ng/mL (0.00-3.00) Medications Given: Fluticasone Propionate (Flovent Hfa) 2 puffs IH BID [facility] Stop: 06/28/19 20:59 Last Admin: 12/30/18 21:49 Dose: 2 puffs Guaifenesin (Mucinex) 600 mg PO BID NETO Stop: 06/28/19 20:59 Last Admin: 12/30/18 21:49 Dose: 600 mg Hydromorphone HCl (Dilaudid) 0.5 - 1 mg IVP Q2HRS PRN PRN Reason: Pain, Severe Stop: 01/09/19 13:48 Last Admin: 12/30/18 19:24 Dose: 0.5 mg Insulin Human Lispro (Humalog Lispro) 0 unit SC TIDMEAL NETO PRN Reason: Protocol Stop: 06/28/19 07:59 Last Admin: 12/30/18 18:39 Dose: Not Given Ondansetron HCl (Zofran) 4 mg IVP Q4HRS PRN PRN Reason: Nausea/Vomiting, Can't Take PO Stop: 06/28/19 05:46 Last Admin: 12/30/18 12:33 Dose: 4 mg Discontinued Medications Hydrocodone Bitart/Acetaminophen ([place] 5/325) 1 tab PO EDNOW ONE Stop: 12/30/18 05:31 Last Admin: 12/30/18 05:36 Dose: 1 tab Sodium Chloride (Ns) 1,000 mls @ 0 mls/hr IV EDNOW ONE; Wide Open PRN Reason: Protocol Stop: 12/30/18 04:45 Last Admin: 12/30/18 05:10 Dose: 1,000 mls Sodium Chloride (Ns) 1,000 mls @ 0 mls/hr IV EDNOW ONE; Wide Open PRN Reason: Protocol Stop: 12/30/18 04:45 Last Admin: 12/30/18 05:11 Dose: 1,000 mls Ondansetron HCl (Zofran) 4 mg IVP EDNOW ONE Stop: 12/30/18 04:45 Last Admin: 12/30/18 05:11 Dose: 4 mg Departure - Departure Disposition: [facility] In[facility] Acute Clinical Impression: Dehydration, Hyponatremia Abdominal pain Qualifiers: Abdominal location: generalized Qualified Code(s): R10.84 - Generalized abdominal pain Condition: Fair
[2018-12-30] MEDS ORDERED: NS 1,000 ML IV ONE ×2 (04:44)
[2018-12-30] MEDS ORDERED: ONDANSETRON 4 MG/2 ML VIAL IVP ONE (04:44)
[2018-12-30 05:08] LABS: PLATELET COUNT 310 10^3/uL (150-400)
[2018-12-30 05:16] LABS: INR 1.2 (0.83-1.16); PROTIME(PATIENT) 15.4 SEC (12.0-15.0)
[2018-12-30] MEDS ORDERED: HYDROCODONE/APAP 5/325 TAB PO ONE (05:30)
[2018-12-30] MEDS ORDERED: ACETAMINOPHEN 325 MG TAB PO PRN ×2 (05:47→13:49)
[2018-12-30] MEDS ORDERED: IOHEXOL 300 mgI/ML (OMNIPAQUE) 150 ML BTL IV ONE (05:56)
--- NOTE | 2018-12-30 06:41 | CPEKG ---
Test Reason : OPEN Blood Pressure : / mmHG Vent. Rate : 118 BPM Atrial Rate : 118 BPM P-R Int : 128 ms QRS Dur : 079 ms QT Int : 309 ms P-R-T Axes : 221 030 030 degrees QTc Int : 434 ms Sinus or ectopic atrial tachycardia Multiple premature complexes, vent & supraven Low voltage, extremity leads Confirmed by Jem Wills ([id number]) on 12/30/2018 6:40:39 AM Referred By: Jem Wills Confirmed By:Jem Wills
--- NOTE | 2018-12-30 07:14 | PDGENHP ---
History and Physical - Chief Complaint Vomiting, diarrhea, abdominal pain - History of Present Illness 63 yo obese M w/ DM presents with nausea, vomiting, diarrhea, and abdominal pain. The patient was admitted here in November for pneumonia. He finished a course of antibiotics a few weeks ago. Over the last week he started to note difficulty tolerating PO with nausea and early satiety. Then, over the last 2-3 days, he developed vomiting, abdominal pain, dark urine, and soft, light- colored stools. He has been having about 5 loose stools daily. He continues to have a cough but denies shortness of breath or fever. In the ED his laboratory work-up is notable for hyponatremia, lactic acidosis, mild hyperbilirubinemia, and markedly elevated alkaline phosphatase. He is moderately tachycardic. A CT scan demonstrates esophageal thickening concerning for malignancy vs. esophagitis as well as possible cirrhosis. He is being admitted for further evaluation. Case discussed with ED physician Dr. Gill; records reviewed and summarized above. History Information - Allergies/Home Medication List Allergies/Adverse Reactions: No Known Allergies Allergy (Verified 12/30/18 04:31) Home Medications: Fluticasone Propionate [Flovent Hfa] 2 puffs PO BID 12/05/18 [Last Taken ] Pioglitazone HCl 30 mg PO DAILY 12/05/18 [Last Taken 12/05/18] metFORMIN HCL [Metformin HCl ER] 2,000 mg PO DAILY@1800 12/05/18 [Last Taken 05/17] I have personally reviewed and updated: family history, medical history - Past Medical History cancer, diabetes type 2 Additional medical history: Denies family hx of liver disease - Surgical History Additional surgical history: Nephrectomy - Family History Positive for: lung disease (Father) - Social History Smoking Status: Never smoked Review of Systems Review of Systems: ROS: 10pt was reviewed & negative except for what was stated in HPI & below Physical Exam Physical Exam: Temp Pulse Resp BP Pulse Ox 36.9 C 115 H 19 138/77 H 96 12/30/18 06:00 12/30/18 06:00 12/30/18 06:00 12/30/18 06:00 12/30/18 06:00 O2 (L/minute) 2 Constitutional: obese, uncomfortable Eyes: PERRL, EOMI Ears, Nose, Mouth, Throat: moist mucous membranes, no oral mucosal ulcers Cardiovascular: no murmur, rub, or gallop, tachycardia Respiratory: no respiratory distress, inspiratory crackles Gastrointestinal: normoactive bowel sounds, tenderness (Epi-gastric and supra- pubic), No guarding, No rebound, No distension Skin: warm, normal color Neurologic: AAOx3, CN II-XII Intact Psychiatric: interacting appropriately, not anxious Lab Data & Imaging Review 12/30/18 04:55 12/30/18 04:55 WBC 15.54 10^3/uL (3.80-9.50) H 12/30/18 04:55 RBC 5.51 10^6/uL (4.40-6.38) 12/30/18 04:55 Hgb 14.3 g/dL (13.7-17.5) 12/30/18 04:55 Hct 44.1 % (40.0-51.0) 12/30/18 04:55 MCV 80.0 fL (81.5-99.8) L 12/30/18 04:55 MCH 26.0 pg (27.9-34.1) L 12/30/18 04:55 MCHC 32.4 g/dL (32.4-36.7) 12/30/18 04:55 RDW 16.5 % (11.5-15.2) H 12/30/18 04:55 Plt Count 310 10^3/uL (150-400) 12/30/18 04:55 MPV 9.8 fL (8.7-11.7) 12/30/18 04:55 Neut % (Auto) Not Reported 12/30/18 04:55 Lymph % (Auto) Not Reported 12/30/18 04:55 [place] % (Auto) Not Reported 12/30/18 04:55 Eos % (Auto) Not Reported 12/30/18 04:55 Baso % (Auto) Not Reported 12/30/18 04:55 Nucleat RBC Rel Count Not Reported 12/30/18 04:55 Absolute Neuts (auto) Not Reported 12/30/18 04:55 Absolute Lymphs (auto) Not Reported 12/30/18 04:55 Absolute Monos (auto) Not Reported 12/30/18 04:55 Absolute Eos (auto) Not Reported 12/30/18 04:55 Absolute Basos (auto) Not Reported 12/30/18 04:55 Absolute Nucleated RBC Not Reported 12/30/18 04:55 Immature Gran % Not Reported 12/30/18 04:55 Seg Neutrophils % 88.0 % 12/30/18 04:55 Band Neutrophils % 0.0 % 12/30/18 04:55 Lymphocytes % 3.0 % 12/30/18 04:55 Monocytes % 9.0 % 12/30/18 04:55 Eosinophils % 0.0 % 12/30/18 04:55 Basophils % 0.0 % 12/30/18 04:55 Metamyelocytes % 0.0 % 12/30/18 04:55 Myelocytes % 0.0 % 12/30/18 04:55 Promyelocytes % 0.0 % 12/30/18 04:55 Blast Cells % 0.0 % 12/30/18 04:55 Immature Gran # Not Reported 12/30/18 04:55 Absolute Seg Neuts 13.68 10^3/uL (1.70-6.50) H 12/30/18 04:55 Absolute Band Neuts 0.00 10^3/uL (0.00-0.70) 12/30/18 04:55 Absolute Lymphocytes 0.47 10^3/uL (1.00-3.00) L 12/30/18 04:55 Absolute Monocytes 1.40 10^3/uL (0.30-0.80) H 12/30/18 04:55 Absolute Eosinophils 0.00 10^3/uL (0.03-0.40) L 12/30/18 04:55 Absolute Basophils 0.00 10^3/uL (0.02-0.10) L 12/30/18 04:55 Absolute Metamyelocyte 0.00 10^3/mL (0.00-0.00) 12/30/18 04:55 Absolute Myelocytes 0.00 10^3/mL (0.00-0.00) 12/30/18 04:55 Absolute Promyelocytes 0.00 10^3/uL (0.00-0.00) 12/30/18 04:55 Absolute Plasma Cells 0.00 10^3/uL (0.00-0.00) 12/30/18 04:55 Nucleated RBCs 0 /100 WBC (0-0) 12/30/18 04:55 Absolute Blast Cells 0.00 10^3/uL (0.00-0.00) 12/30/18 04:55 Plasma Cells % 0.0 % 12/30/18 04:55 Platelet Estimate ADEQUATE (ADEQ) 12/30/18 04:55 Microcytic Cells 1+ H 12/30/18 04:55 PT 15.4 SEC (12.0-15.0) H 12/30/18 04:55 INR 1.20 (0.83-1.16) H 12/30/18 04:55 APTT 26.7 SEC (23.0-38.0) 12/30/18 04:55 VBG Lactic Acid 3.5 mmol/L (0.7-2.1) H 12/30/18 04:55 Sodium 125 mEq/L (135-145) L 12/30/18 04:55 Potassium 5.4 mEq/L (3.5-5.2) H 12/30/18 04:55 Chloride 94 mEq/L (97-110) L 12/30/18 04:55 Carbon Dioxide 21 mEq/l (22-31) L 12/30/18 04:55 Anion Gap 10 mEq/L (6-14) 12/30/18 04:55 BUN 22 mg/dL (7-23) 12/30/18 04:55 Creatinine 0.8 mg/dL (0.7-1.3) 12/30/18 04:55 Estimated GFR > 60 12/30/18 04:55 Glucose 109 mg/dL (70-100) H 12/30/18 04:55 Serum Osmolality 268 mosmo/kg (280-297) L 12/30/18 04:55 Calcium 9.0 mg/dL (8.5-10.4) 12/30/18 04:55 Total Bilirubin 2.3 mg/dL (0.1-1.4) H 12/30/18 04:55 Conjugated Bilirubin 1.6 mg/dL (0.0-0.5) H 12/30/18 04:55 Unconjugated Bilirubin 0.7 mg/dL (0.0-1.1) 12/30/18 04:55 AST 170 IU/L (17-59) H 12/30/18 04:55 ALT 88 IU/L (21-72) H 12/30/18 04:55 Alkaline Phosphatase 1373 IU/L (38-126) H 12/30/18 04:55 Total Protein 5.9 g/dL (6.3-8.2) L 12/30/18 04:55 Albumin 3.0 g/dL (3.5-5.0) L 12/30/18 04:55 Lipase 207 IU/L (23-300) 12/30/18 04:55 Assessment & Plan Assessment: 63 yo M w/ DM presents with N/V, abdominal pain and found to have esophageal thickening and abnormal LFTs. Plan: 1. Nausea, vomiting, diarrhea, abdominal pain - Unclear etiology; considerations include colitis (recent antibiotics), esophagitis (based on CT appearance), and liver pathology noting abnormal LFTs. CT scan notable for esophageal thickening and possible cirrhosis. - RUQ U/S to further evaluate biliary system - Pain control, anti-emetics PRN - GI PCR ordered 2. Esophageal thickening - Noted on CT scan (personally reviewed/interpreted); per radiology this is suspicious for malignancy vs. esophagitis. - Maintain NPO - Will need GI consult to consider EGD 3. Abnormal LFTs - Cholestasis pattern with elevated Alk Phos and bilirubin. Dark urine and soft, light colored stools are consistent with this. Other possibilities for alk phos elevation include bone and intestinal mucosa noting esophageal thickening. - RUQ U/S for further evaluation - Monitor LFTs 4. Hyponatremia - This is most likely due to dehydration noting tachycardia and elevated lactate. Noting symptomatic hypovolemia, will prioritize rehydration over water balance at this point. - Currently receiving 2nd liter NS - Repeat BMP at 1200 5. Leukocytosis - Possibly reactive, no clear source of infection identified so far. - Observe off of antibiotics - Obtain blood cultures, UA 6. DM - He uses a combination of insulin and orals at home, but he is unsure of the insulin dosing at the moment. - Standard lispro SSI for now - Monitor BG ACHS; D50 IV PRN for hypoglycemia Diet - NPO pending GI evaluation Code - Full Ppx - SCDs Dispo - Admit under observation status
[2018-12-30] MEDS ORDERED: D50W 25 GM/50 ML SYR IVP PRN (07:29)
[2018-12-30] MEDS: INSULIN LISPRO 100 UNIT/ML SC SCH ×3 (08:35→18:39)
[2018-12-30] MEDS ORDERED: ENOXAPARIN 40 MG/0.4 ML SYR SC SCH (09:00)
--- NOTE | 2018-12-30 10:42 | HOSPPROG ---
Hospitalist Progress Note Assessment/Plan: # N/V/diarrhea - conservative treatment for now, check GI PRC # esophageal thickening, diffuse hepatic mets, markedly abnormal LFTs - discussed with Dr Hanna - likely needs EGD - will d/w oncology regarding bx of esophagus vs liver - hx nephrectomy (he is unclear if he had RCC) in [address] Peace # hypoNa - hypovolemic, cont NS, recheck BMP # hypoeK - recheck BMP # leukocytosis - BCx pending # dvt ppx - start lovenox after biopsies Subjective: seen with ; we discussed the US findings of cancer Objective: Vital Signs Temp Pulse Resp BP Pulse Ox 36.6 C 110 H 16 119/76 95 12/30/18 08:00 12/30/18 08:00 12/30/18 08:00 12/30/18 08:00 12/30/18 08:00 PT 15.4 SEC (12.0-15.0) H 12/30/18 04:55 INR 1.20 (0.83-1.16) H 12/30/18 04:55 40 mins of direct patient care prolonged time - Physical Exam Constitutional: no apparent distress, appears nourished, other (sitting in chair ) ICD10 Worksheet Patient Problems: Problems Problem Status Onset Abdominal pain Acute Dehydration Acute Hyponatremia Acute Community acquired pneumonia Acute Hiatal hernia without gangrene and obstruction Acute Hypoxia Acute Interstitial lung disease Acute
[2018-12-30] MEDS ORDERED: NS 1,000 ML IV SCH (10:45)
[2018-12-30] MEDS: ONDANSETRON 4 MG/2 ML VIAL IVP PRN (12:33)
[2018-12-30] MEDS ORDERED: HYDROCODONE/APAP 5/325 TAB PO PRN (13:49)
[2018-12-30] MEDS: HYDROmorphONE/DILAUDID 1 MG/ML INJ IVP PRN ×2 (14:05→19:24)
--- NOTE | 2018-12-30 15:56 | PDCONSULT ---
[employer] Note: Patient interviewed and examined. Chart reviewed and dictated. Briefly; 63 year old male with dysphagia, N/V and diarrhea with CT of Abdomen showing findings c/w distal esophageal CA with mets to liver. Recommend EGD, however electrolyte imbalance will need to be corrected prior to endoscopy. Please keep NPO after MN. Dr Hemphill can perform EGD tomorrow am. Satish Spears MD
--- NOTE | 2018-12-30 17:31 | GCON ---
[f rep st] CONSULTATION GI CONSULTATION DATE OF CONSULTATION: 12/30/2018 REQUESTING PHYSICIAN: Good Ledbetter MD REASON FOR CONSULTATION: Dysphagia, nausea, abdominal pain and diarrhea with abnormal CT scan of the abdomen. HISTORY OF PRESENT ILLNESS: Edi is a 63-year-old gentleman who came to the emergency room today with a several-month history of more severe anorexia, nausea, occasional vomiting and epigastric abdominal pain. He stated the symptoms started in September of last year and have been slowly progressive. Over the last 3 days, he has had nausea and vomiting and epigastric abdominal discomfort as well as dark urine and light-colored stools with up to 5 loose stools daily. He has denied any hematemesis or blood in the stool. MEDICATIONS: At home: 1. Flovent 2 puffs twice daily. 2. Pioglitazone 30 mg p.o. daily. 3. Metformin 2000 mg p.o. daily. ALLERGIES: No known drug allergies. PAST MEDICAL HISTORY: Significant for type 2 diabetes mellitus and renal carcinoma with status post nephrectomy. FAMILY HISTORY: Positive for lung disease in his father. Negative for peptic ulcer disease or GI malignancy. SOCIAL HISTORY: He is a nonsmoker. Does not consume significant quantities of alcohol or take significant NSAIDs. He resides with his in [place]. PAST ENDOSCOPY HISTORY: He had a failed colonoscopy in the past but stated he had a normal virtual colonoscopy 2 years ago at [facility]. REVIEW OF SYSTEMS: With the exception of fatigue, malaise, anorexia, nausea and vomiting, and loose stool was negative for comprehensive review of systems. OBJECTIVE: VITAL SIGNS: On my examination today, temperature 36.6, pulse 110 regular, blood pressure 119/76, respiratory rate 16. O2 saturation 96% on 2 liters per nasal cannula. GENERAL: He is an obese gentleman sitting in bed in no apparent distress. INTEGUMENT: Clear. HEENT: Head atraumatic, normocephalic. Pupils equal, round, react to light. EOMs are intact. Sclerae are nonicteric. Mucous membranes moist. Dentition fair. NECK: Supple but full. Trachea midline. LYMPHATICS: No palpable cervical or axillary adenopathy. LUNGS: Clear to percussion on auscultation. CARDIOVASCULAR: Regular rhythm and rate. Normal S1, S2 without murmur. Peripheral pulses slightly decreased bilaterally. No pedal edema. GASTROINTESTINAL: Abdomen obese. Positive bowel sounds. Distended abdomen. No liver edge or spleen tip appreciated. No fluid wave noted. No shifting dullness. No rebound. EXTREMITIES: Without deformity. NEURO: Patient is alert and oriented x3. No focal neurologic deficits. LABS: White count 15.54, hemoglobin 14.3, hematocrit 44.1, platelets 310, 000. ProTime 15.4, INR 1.2, PTT 26.7, lactic acid 3.5. Sodium 128, potassium 5.2, chloride 94, CO2 22, BUN 22, creatinine 0.8, glucose 109, calcium 9.0. Total bilirubin 2.3, conjugated 1.6, unconjugated 0.7. AST 170, ALT 88, ALP 1373, albumin 3.0, lipase 207. Urinalysis positive bilirubin, +1 protein, 5-10 white blood cells, trace epithelials, 15-25 hyaline casts, 1-5 granular casts. Abdominal and pelvic CT scan showed cholelithiasis without biliary duct dilation ; distal esophageal thickening with paraesophageal adenopathy suspicious for esophageal carcinoma with local regional metastases; nodular contour of the liver with mild hepatomegaly; hepatic metastases cannot be excluded; prior right nephrectomy; left perinephric fluid without nephrolithiasis or hydronephrosis and degenerative lumbar spine. Abdominal ultrasound revealed diffuse hepatic metastases; prior right nephrectomy; cholelithiasis with contracted gallbladder with gallbladder wall thickening and dilated common bile duct of 11 mm. IMPRESSION: 1. 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 2. Type 2 diabetes mellitus. 3. Reactive airway disease. 4. Obesity. RECOMMENDATIONS: 1. Will proceed with esophagogastroduodenoscopy later today for definitive diagnosis. Patient at increased risk for complication due to multiple medical problems as listed in assessment. 2. NPO. 3. Will follow with you. /[id number]/MODL MTDD
[2018-12-30] MEDS ORDERED: ALBUTEROL 60 PUFFS/8 GM MDI IH PRN (18:15)
[2018-12-30] MEDS ORDERED: BENZONATATE 100 MG CAP PO PRN (18:15)
[2018-12-30] MEDS ORDERED: guaiFENesin/CODEINE PHOS 10 ML UDCUP PO PRN (18:30)
--- NOTE | 2018-12-30 19:42 | GCON ---
[f rep st] CONSULTATION ONCOLOGY CONSULTATION REFERRING PHYSICIAN: Raghu Ledbetter MD REASON FOR CONSULTATION: Abnormal CT scan. Requesting physician Dr. Raghu Ledbetter. HISTORY OF PRESENT ILLNESS: The patient is a 63-year-old gentleman with a past medical history of type 2 diabetes and a renal cell carcinoma (presumably) requiring right nephrectomy in 1989, who was recently hospitalized earlier this month with a pneumonia. He presented to the emergency room this morning with odynophagia, dysphagia, and loose bowel movements. He denies nausea, but describes "food coming back up" after eating. He describes his stools as light in color with small frequent bowel movements, 5 to 6 times a day. He has some diffuse abdominal discomfort and feels bloated. He estimates losing about 10 pounds over the last month. He continues to have a cough following his pneumonia, which is mostly nonproductive. He thinks some of his upper abdominal pain may be due to coughing. A CT of the abdomen this morning demonstrated thickening of the distal esophagus with paraesophageal lymphadenopathy. The study was noncontrast due to a questionable contrast allergy. Abdominal ultrasound demonstrated numerous hepatic lesions, some gallbladder wall thickening (6 mm), and contracted gallbladder. Common bile duct dilated (11 mm). He was admitted for further evaluation. PAST MEDICAL HISTORY: His primary care provider is Dr. Belkys Hewitt. 1. Type 2 diabetes. He reports insulin use. 2. Presumed history of renal cell carcinoma, pathology not available. PAST SURGICAL HISTORY: 1. Right nephrectomy [place] [address] Peace for presumed renal cell carcinoma. He reports having some followup with Dr. Peace for a few years. I cannot find a pathology report. He never saw an oncologist. 2. Multiple back surgeries. FAMILY HISTORY: No history of malignancy. SOCIAL HISTORY: He is . He has stepchildren, but no biological children. He is a nonsmoker. He previously drank heavily, but quit in the early . 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 REVIEW OF SYSTEMS: CONSTITUTIONAL: Weight loss per HPI. No night sweats. HEENT: No vision changes. CARDIOVASCULAR: No exertional chest pain, palpitations, PND, orthopnea, or lower extremity edema. RESPIRATORY: Per HPI. GI: Per HPI. : He has had decreased urination and dark urine. MUSCULOSKELETAL: Chronic back pain. No new bony complaints. NEUROLOGIC: No headache, numbness, or weakness. LYMPH: No lymphadenopathy. HEMATOLOGIC: No bleeding or bruising. PHYSICAL EXAM: VITAL SIGNS: Blood pressure 138/86, pulse 114, respirations 18 , 94% on 2 L, and afebrile. GENERAL: An alert gentleman in no acute distress. His is present. HEENT: Mild scleral icterus. NECK: Supple. LYMPH: No cervical or supraclavicular adenopathy. Bilateral mobile axillary nodes palpable. CARDIOVASCULAR: Regular rate and rhythm. LUNGS: Clear to auscultation bilaterally. ABDOMEN: Obese. No palpable masses. No organomegaly, but limited by abdominal girth. No periumbilical nodularity. SKIN: No petechiae or ecchymoses. NEUROLOGIC: Grossly nonfocal. LABORATORY DATA: Sodium 125, potassium 5.4, chloride 94, bicarbonate 21, BUN 22 , creatinine 0.8, and glucose 109. Total bilirubin 2.3, direct 1.6, AST 170, ALT 88, alkaline phosphatase 1373, and albumin 3.0. WBC 15.5 (88% neutrophils) , hemoglobin 14.3, MCV 80, and platelets 310,000. He does not appear to have had liver function tests when he was admitted for pneumonia. RADIOLOGIC STUDIES: Per HPI. Chest x-ray: Bilateral lower lobe subsegmental atelectasis without pneumonia. IMPRESSION: 1. Distal esophageal thickening concerning for esophageal cancer. 2. Probable hepatic metastases. 3. Dilated common bile duct. Gastroenterology has consulted and plans for upper endoscopy with biopsy. I recommend a liver biopsy as well to document metastatic disease. I reviewed the radiologic findings with the patient and his , and the suspected diagnosis of metastatic esophageal cancer. We discussed the role for systemic therapy in that case, which would be guided by results of pathology. He reports the suspected contrast allergy was almost 30 years ago when he had sneezing during a CT scan. No shellfish allergy. I recommend CT chest, abdomen , and pelvis with contrast for further evaluation. His alkaline phosphatase is elevated out of proportion to his other liver function tests, and I wonder if there is a component of biliary obstruction as well. Gastroenterology is involved. I discussed with Dr. Ledbetter. Follow up with me after discharge for review of diagnostic evaluation and discussion of treatment decisions. /[id number]/MODL MTDD
[2018-12-30] MEDS: FLUTICASONE HFA 220 MCG MDI IH SCH (21:49)
[2018-12-30] MEDS: guaiFENesin 600 MG TAB.ER PO SCH (21:49)
[2018-12-31] MEDS: HYDROmorphONE/DILAUDID 1 MG/ML INJ IVP PRN ×6 (01:46→22:07)
[2018-12-31 06:00] LABS: PLATELET COUNT 269 10^3/uL (150-400)
[2018-12-31] MEDS: INSULIN LISPRO 100 UNIT/ML SC SCH ×3 (07:43→18:48)
--- NOTE | 2018-12-31 09:16 | SOAPPROG ---
SOAP Progress Note Assessment/Plan: Assessment:Plan: 1) Abnml Ct - prob esoph cancer with liver mets, needs tissue dx. EGD cancelled again today as potassium is higher then yesterday. The EGD is non- urgent. 2) Lytes - hyperkalemia, hyponatremia - needs to be improved prior to EGD 3) Diet - liquids for now 4) renal - cr up query pre-renal? discussed with Dr. Ledbetter 12/31/18 09:14 Subjective: CC - abnml Ct scan, dysphagia NPO for EGD but potassium up again Objective: Vital Signs Temp Pulse Resp BP Pulse Ox 36.8 C 115 H 18 121/67 H 90 L 12/31/18 08:07 12/31/18 08:07 12/31/18 08:07 12/31/18 08:07 12/31/18 08:07 Microbiology 12/30/18 09:30 Gastrointestinal Tract Panel (PCR) - Final Stool No Organism Detected By Pcr Laboratory Results 12/31/18 05:38 12/31/18 05:38 12/30/18 12/31/18 01/01/19 05:59 05:59 05:59 Intake Total 3000 Output Total 150 Balance 2850 PT 15.4 SEC (12.0-15.0) H 12/30/18 04:55 INR 1.20 (0.83-1.16) H 12/30/18 04:55 A+Ox3 CTA S1S2 +BS, soft ICD10 Worksheet Patient Problems: Problems Problem Status Onset Abdominal pain Acute Dehydration Acute Hyponatremia Acute Community acquired pneumonia Acute Hiatal hernia without gangrene and obstruction Acute Hypoxia Acute Interstitial lung disease Acute
[2018-12-31] MEDS ORDERED: NS 1,000 ML IV ONE (10:41)
--- NOTE | 2018-12-31 10:48 | HOSPPROG ---
Hospitalist Progress Note Assessment/Plan: # N/V - sx most c/w esophageal obstruction - EGD for further eval # esophageal thickening, diffuse hepatic mets, markedly abnormal LFTs - most c/w esophageal ca - will get WGD and liver bx for diagnosis - hx nephrectomy (he is unclear if he had RCC) in [address] # tachycardia - likely volume mediated; also consider PE but less likely and more contrast now too risky - continue to follow # recent pneumonia - likely aspiration given current pathology # hypoNa - improving with IVF # mild INOCENTE - pre-renal; also possibly DONTA # hyperK - worse again today - bolus 1L NS then recheck # leukocytosis - BCx pending # dvt ppx - start lovenox after biopsies Subjective: patient and are frustrated with having the EGD cancelled Objective: Vital Signs Temp Pulse Resp BP Pulse Ox 36.8 C 115 H 18 121/67 H 90 L 12/31/18 08:07 12/31/18 08:07 12/31/18 08:07 12/31/18 08:07 12/31/18 08:07 Microbiology 12/30/18 09:30 Gastrointestinal Tract Panel (PCR) - Final Stool No Organism Detected By Pcr Laboratory Results 12/31/18 05:38 12/30/18 12/31/18 01/01/19 05:59 05:59 05:59 Intake Total 3000 Output Total 150 Balance 2850 PT 15.4 SEC (12.0-15.0) H 12/30/18 04:55 INR 1.20 (0.83-1.16) H 12/30/18 04:[address] Hemphill high risk with ongoing tachycardia - Physical Exam Constitutional: no apparent distress, appears nourished, obese Cardiovascular: no murmur, rub, or gallop, tachycardia Respiratory: no respiratory distress, no rales or rhonchi, clear to auscultation Gastrointestinal: normoactive bowel sounds, soft, non-tender abdomen, no palpable masses ICD10 Worksheet Patient Problems: Problems Problem Status Onset Community acquired pneumonia Acute Hypoxia Acute Interstitial lung disease Acute Hiatal hernia without gangrene and obstruction Acute Dehydration Acute Hyponatremia Acute Abdominal pain Acute
[2018-12-31] MEDS: FLUCONAZOLE 100 MG TAB PO SCH (10:52)
[2018-12-31] MEDS: PANTOPRAZOLE SODIUM 40 MG TAB PO SCH (10:52)
[2018-12-31] MEDS: guaiFENesin 600 MG TAB.ER PO SCH ×2 (10:53→21:53)
[2018-12-31] MEDS: D5W NS 1,000 ML IV SCH ×2 (11:35→22:07)
[2018-12-31] MEDS: FLUTICASONE HFA 220 MCG MDI IH SCH ×2 (11:39→21:53)
--- NOTE | 2018-12-31 12:22 | SOAPPROG ---
SOAP Progress Note Assessment/Plan: Assessment: Edi is a very pleasant 63-year-old male who was found to have likely esophageal cancer with metastatic disease within the liver. 1. Presumed metastatic cancer: Based on his imaging it appears that he has an underlying esophageal primary given his think getting in symptoms. He likely has hepatic metastasis as well. We discussed that he likely will need a PEG tube given his inability to eat. His upper endoscopy was canceled today. He does have an IR consultation for evaluation of liver biopsy. 2. Decreased p.o. Intake: I feel that he likely will need a PEG tube which he finds amendable. 12/31/18 12:20 Subjective: Acute events overnight. Went for endoscopy today which was canceled due to electrolyte abnormalities. He is unable to eat and drink anything due to pain and obstruction. Objective: Vital Signs Temp Pulse Resp BP Pulse Ox 36.3 C 109 H 14 108/69 93 12/31/18 11:18 12/31/18 11:48 12/31/18 11:48 12/31/18 11:18 12/31/18 11:48 Microbiology 12/30/18 09:30 Gastrointestinal Tract Panel (PCR) - Final Stool No Organism Detected By Pcr Laboratory Results 12/31/18 05:38 12/31/18 11:10 12/30/18 12/31/18 01/01/19 05:59 05:59 05:59 Intake Total 3000 Output Total 150 Balance 2850 PT 15.4 SEC (12.0-15.0) H 12/30/18 04:55 INR 1.20 (0.83-1.16) H 12/30/18 04:55 General: Pleasant, conversant no acute distress HEENT: Oropharynx clear extraocular movements are intact nasal cannula in place Cardiovascular: Regular rate and rhythm Pulmonary: Clear to auscultation bilaterally Abdomen: Soft nontender nondistended bowel sounds are present Extremities: No cyanosis or clubbing Skin: No skin lesions ICD10 Worksheet Patient Problems: Problems Problem Status Onset Abdominal pain Acute Dehydration Acute Hyponatremia Acute Community acquired pneumonia Acute Hiatal hernia without gangrene and obstruction Acute Hypoxia Acute Interstitial lung disease Acute
[2018-12-31] MEDS ORDERED: SODIUM POLY SULF 15 GM/60 ML BOTTLE PO ONE ×2 (13:42→17:00)
--- NOTE | 2018-12-31 16:09 | PDMN ---
Medical Necessity Medical necessity: MCG: M505 abd pain undg. 63 yr old presents with N/V/D, abd pain., X 1week. last two days vomiting abd michelle and dark urine loose stools. cough, pt is hyponatremic, tachycardic, CT scan shows esophageal thickening , poss cirrhosis, - LFT's abnormal- leukocytosis, DM- further monitoring and eval needed--- pt status changed to INPT 12/31/18 - pt EGD cancelled due to increasing tachycardia, rising K, not making urine- hypovolemia + DONTA likely- further eval needed - GI consult pend.
[2018-12-31] MEDS ORDERED: NS IV ONE (17:17)
[2018-12-31] MEDS ORDERED: FUROSEMIDE IV ONE (17:17)
--- NOTE | 2018-12-31 17:18 | PDCONSULT ---
Public Address Technician Note: Nephrology Consult: Reason for Consult: INOCENTE Consulting Physician: Khloe HPI: 63yo M with PMH significant for obesity, DM II, and ? RCC s/p nephrectomy in 1989 and recent admission with pneumonia now admitted with nausea/vomiting/ diarrhea/abdominal pain and difficulty eating. Non-contrast CT scan on admission showed thickening of the esophagus concerning for malignancy and findings in the liver concerning for liver mets. Abdominal ultrasound also suggestive of liver mets. Since admission, Cr ceci from 0.9 --> 1.4 and urine output has been marginal. K elevated in the mid 5's. Patient currently reports diaphoresis, but denies fevers, shortness of breath, significant abdominal pain , chest pain. He has had a cough since his admission with pneumonia and some back pain related to that. Since admission, the symptoms that brought him in have improved. He was given kayexalate for the hyperkalemia and has not had a bowel movement since then. Now has a alfaro catheter. Patient reports taking a lot of NSAIDs prior to admission. PMH: DMII, obesity, RCC s/p nephrectomy, PNA PSH: nephrectomy 1989 Family Hx: non known family history of kidney problems Social Hx: non-smoker, ROS: 11 systems reviewed and negative except for that discussed in HPI above Temp Pulse Resp BP Pulse Ox 36.6 C 121 H 17 165/80 H 95 12/31/18 15:31 12/31/18 15:31 12/31/18 15:31 12/31/18 15:31 12/31/18 15:31 O2 (L/minute) 2 Exam: General- awake, alert, well-appearing, NAD Eyes- anicteric sclera, no conjunctival injection HEENT- MMM, no gross oral lesions, large cervantes CV- tachycardic, regular rate, no g/m/r Pulm- CTAB, no wheezes or rales, breathing comfortably on O2 NC Abd- obese, soft, non-tender, +BS - alfaro catheter in place with small amount of dark urine Skin- no rashes or bruising on exposed skin Extrem- 1-2+ lower extremity edema Psych- pleasant, answers questions appropriately WBC 12.46 10^3/uL (3.80-9.50) H 12/31/18 05:38 RBC 4.87 10^6/uL (4.40-6.38) 12/31/18 05:38 Hgb 12.5 g/dL (13.7-17.5) L 12/31/18 05:38 POC Hgb 16.7 gm/dL (13.7-17.5) 12/30/18 08:21 Hct 41.3 % (40.0-51.0) 12/31/18 05:38 POC Hct 49 % (40-51) 12/30/18 08:21 MCV 84.8 fL (81.5-99.8) 12/31/18 05:38 MCH 25.7 pg (27.9-34.1) L 12/31/18 05:38 MCHC 30.3 g/dL (32.4-36.7) L 12/31/18 05:38 RDW 16.2 % (11.5-15.2) H 12/31/18 05:38 Plt Count 269 10^3/uL (150-400) 12/31/18 05:38 MPV 10.0 fL (8.7-11.7) 12/31/18 05:38 Neut % (Auto) 82.2 % (39.3-74.2) H 12/31/18 05:38 Lymph % (Auto) 5.5 % (15.0-45.0) L 12/31/18 05:38 [place] % (Auto) 11.3 % (4.5-13.0) 12/31/18 05:38 Eos % (Auto) 0.2 % (0.6-7.6) L 12/31/18 05:38 Baso % (Auto) 0.2 % (0.3-1.7) L 12/31/18 05:38 Nucleat RBC Rel Count 0.0 % (0.0-0.2) 12/31/18 05:38 Absolute Neuts (auto) 10.24 10^3/uL (1.70-6.50) H 12/31/18 05:38 Absolute Lymphs (auto) 0.68 10^3/uL (1.00-3.00) L 12/31/18 05:38 Absolute Monos (auto) 1.41 10^3/uL (0.30-0.80) H 12/31/18 05:38 Absolute Eos (auto) 0.02 10^3/uL (0.03-0.40) L 12/31/18 05:38 Absolute Basos (auto) 0.03 10^3/uL (0.02-0.10) 12/31/18 05:38 Absolute Nucleated RBC 0.00 10^3/uL (0-0.01) 12/31/18 05:38 Immature Gran % 0.6 % (0.0-1.1) 12/31/18 05:38 Seg Neutrophils % 88.0 % 12/30/18 04:55 Band Neutrophils % 0.0 % 12/30/18 04:55 Lymphocytes % 3.0 % 12/30/18 04:55 Monocytes % 9.0 % 12/30/18 04:55 Eosinophils % 0.0 % 12/30/18 04:55 Basophils % 0.0 % 12/30/18 04:55 Metamyelocytes % 0.0 % 12/30/18 04:55 Myelocytes % 0.0 % 12/30/18 04:55 Promyelocytes % 0.0 % 12/30/18 04:55 Blast Cells % 0.0 % 12/30/18 04:55 Immature Gran # 0.08 10^3/uL (0.00-0.10) 12/31/18 05:38 Absolute Seg Neuts 13.68 10^3/uL (1.70-6.50) H 12/30/18 04:55 Absolute Band Neuts 0.00 10^3/uL (0.00-0.70) 12/30/18 04:55 Absolute Lymphocytes 0.47 10^3/uL (1.00-3.00) L 12/30/18 04:55 Absolute Monocytes 1.40 10^3/uL (0.30-0.80) H 12/30/18 04:55 Absolute Eosinophils 0.00 10^3/uL (0.03-0.40) L 12/30/18 04:55 Absolute Basophils 0.00 10^3/uL (0.02-0.10) L 12/30/18 04:55 Absolute Metamyelocyte 0.00 10^3/mL (0.00-0.00) 12/30/18 04:55 Absolute Myelocytes 0.00 10^3/mL (0.00-0.00) 12/30/18 04:55 Absolute Promyelocytes 0.00 10^3/uL (0.00-0.00) 12/30/18 04:55 Absolute Plasma Cells 0.00 10^3/uL (0.00-0.00) 12/30/18 04:55 Nucleated RBCs 0 /100 WBC (0-0) 12/30/18 04:55 Absolute Blast Cells 0.00 10^3/uL (0.00-0.00) 12/30/18 04:55 Plasma Cells % 0.0 % 12/30/18 04:55 Platelet Estimate ADEQUATE (ADEQ) 12/30/18 04:55 Microcytic Cells 1+ H 12/30/18 04:55 PT 15.4 SEC (12.0-15.0) H 12/30/18 04:55 INR 1.20 (0.83-1.16) H 12/30/18 04:55 APTT 26.7 SEC (23.0-38.0) 12/30/18 04:55 VBG Lactic Acid 3.5 mmol/L (0.7-2.1) H 12/30/18 04:55 POC Sodium 128 mEq/L (135-145) L 12/30/18 08:21 Sodium 130 mEq/L (135-145) L 12/31/18 16:40 POC Potassium 5.2 mEq/L (3.3-5.0) H 12/30/18 08:21 Potassium 5.5 mEq/L (3.5-5.2) H 12/31/18 16:40 POC Chloride 94 mEq/L (97-110) L 12/30/18 08:21 Chloride 102 mEq/L (97-110) 12/31/18 16:40 Carbon Dioxide 17 mEq/l (22-31) L 12/31/18 16:40 POC Total CO2 22 mEq/L (22-31) 12/30/18 08:21 Anion Gap 11 mEq/L (6-14) 12/31/18 16:40 POC BUN 22 mg/dL (7-23) 12/30/18 08:21 BUN 35 mg/dL (7-23) H 12/31/18 16:40 Creatinine 1.5 mg/dL (0.7-1.3) H 12/31/18 16:40 POC Creatinine 0.9 mg/dL (0.7-1.3) 12/30/18 08:21 Estimated GFR 47 12/31/18 16:40 Glucose 164 mg/dL (70-100) H 12/31/18 16:40 POC Glucose 106 mg/dL (70-100) H 12/31/18 11:47 Serum Osmolality 268 mosmo/kg (280-297) L 12/30/18 04:55 Calcium 8.6 mg/dL (8.5-10.4) 12/31/18 16:40 Total Bilirubin 2.6 mg/dL (0.1-1.4) H 12/31/18 11:10 Conjugated Bilirubin 2.1 mg/dL (0.0-0.5) H 12/31/18 11:10 Unconjugated Bilirubin 0.5 mg/dL (0.0-1.1) 12/31/18 11:10 AST 199 IU/L (17-59) H 12/31/18 11:10 ALT 85 IU/L (21-72) H 12/31/18 11:10 Alkaline Phosphatase 1232 IU/L (38-126) H 12/31/18 11:10 Total Protein 5.3 g/dL (6.3-8.2) L 12/31/18 11:10 Albumin 2.7 g/dL (3.5-5.0) L 12/31/18 11:10 Lipase 207 IU/L (23-300) 12/30/18 04:55 Carcinoembryonic Ag 2270.00 ng/mL (0.00-3.00) H 12/30/18 04:35 Urine Color DANIEL 12/30/18 09:20 Urine Appearance HAZY 12/30/18 09:20 Urine pH 5.0 (5.0-7.5) 12/30/18 09:20 Ur Specific [place] 1.025 (1.002-1.030) 12/30/18 09:20 Urine Protein 1+ (NEGATIVE) H 12/30/18 09:20 Urine Ketones NEGATIVE (NEGATIVE) 12/30/18 09:20 Urine Blood NEGATIVE (NEGATIVE) 12/30/18 09:20 Urine Nitrate NEGATIVE (NEGATIVE) 12/30/18 09:20 Urine Bilirubin POSITIVE (NEGATIVE) H 12/30/18 09:20 Urine Urobilinogen 4.0 EU (0.2-1.0) H 12/30/18 09:20 Ur Leukocyte Esterase NEGATIVE (NEGATIVE) 12/30/18 09:20 Urine RBC 1-3 /hpf (0-3) 12/30/18 09:20 Urine WBC 5-10 /hpf (0-3) H 12/30/18 09:20 Ur Epithelial Cells TRACE /lpf (NONE-1+) 12/30/18 09:20 Hyaline Casts 15-25 /lpf (0-1) H 12/30/18 09:20 Granular Casts 1-5 /lpf (0-1) 12/30/18 09:20 Urine Mucus TRACE /lpf (NONE-1+) 12/30/18 09:20 Urine Osmolality 575 mosmo/kg (300-900) 12/30/18 09:20 Ur Random Creatinine 184.8 mg/dL 12/31/18 08:50 Ur Random Sodium 14 mEq/L (30-90) L 12/31/18 08:50 Urine Glucose NEGATIVE (NEGATIVE) 12/30/18 09:20 Assessment/Plan: 63yo M with PMH significant for obesity, DM II, and ? RCC s/p nephrectomy in 1989 and recent admission with pneumonia now admitted with nausea/vomiting/ diarrhea/abdominal pain and difficulty eating. Non-contrast CT scan and abdominal ultrasound on admission concerning for esophageal cancer with liver mets. Now with INOCENTE. Cr 0.8 on admission --> 1.4. # INOCENTE- borderline oliguric. Most likely etiology is ATN, exact source unclear, possibly NSAIDs prior to admission and we are just catching the uptrend. No contrast given or other nephrotoxic meds. Did have some brief relative hypotension. Malignancy-associated GN a possibility but rate of rise of Cr unlikely. S/p nephrectomy in 1989. -No hydro on initial imaging -Now with alfaro catheter -UA with 100 protein, 15-25 hyaline casts, 1-5 granular casts -Continue to monitor -Discussed possibility of need for dialysis in the future *Recommend checking echo to help assess intravascular volume status and potential etiology of tachycardia *Don't think patient is intravascularly volume deplete anymore # Hyperkalemia- possibly related to cell destruction from liver mets as remains elevated despite NPO and recent N/V/D *Given dose of kayexalate, no BM yet *Repeat BMP pending *Check another BMP at midnight *If no BM with the kayexalate, would sharan with lactulose *Give 100mg IV lasix x 1 in addition to IVF already running # Hyponatremia- --urine studies c/w volume depletion on admission --improving with IVF # Tachycardia- regular on exam --planning for V/Q scan and echo in AM --Do not think 2/2 intravascular volume depletion # Likely esophageal cancer with liver mets-- abnormal LFTs --EGD postponed due to hyperkalemia Discussed with Dr. Ledbetter >1hr spent on the care of this patient with >50% of time spent on counseling and coordination of care
[2018-12-31] MEDS: ONDANSETRON 4 MG/2 ML VIAL IVP PRN (22:07)
[2019-01-01] MEDS: D5W NS 1,000 ML IV SCH (05:34)
[2019-01-01 05:45] LABS: PLATELET COUNT 283 10^3/uL (150-400)
[2019-01-01] MEDS: FLUTICASONE HFA 220 MCG MDI IH SCH ×2 (09:35→20:06)
[2019-01-01] MEDS: INSULIN LISPRO 100 UNIT/ML SC SCH ×3 (09:58→18:06)
[2019-01-01] MEDS: FLUCONAZOLE 100 MG TAB PO SCH (10:02)
[2019-01-01] MEDS: guaiFENesin 600 MG TAB.ER PO SCH ×2 (10:02→22:01)
[2019-01-01] MEDS: PANTOPRAZOLE SODIUM 40 MG TAB PO SCH (10:02)
--- NOTE | 2019-01-01 10:41 | CPEKG ---
Test Reason : OPEN Blood Pressure : / mmHG Vent. Rate : 110 BPM Atrial Rate : 112 BPM P-R Int : 175 ms QRS Dur : 086 ms QT Int : 330 ms P-R-T Axes : 058 052 028 degrees QTc Int : 447 ms Sinus tachycardia Multiple ventricular premature complexes Confirmed by Kwan Collado ([id number]) on 01/01/2019 10:40:52 AM Referred By: Corky Rosa Confirmed By:Kwan Collado
--- NOTE | 2019-01-01 11:10 | SOAPPROG ---
SOAP Progress Note Assessment/Plan: Assessment/Plan: 63yo M with PMH significant for obesity, DM II, and ? RCC s/p nephrectomy in 1989 and recent admission with pneumonia now admitted with nausea/vomiting/ diarrhea/abdominal pain and difficulty eating. Non-contrast CT scan and abdominal ultrasound on admission concerning for esophageal cancer with liver mets. Now with INOCENTE. Cr 0.8 on admission --> 1.4 --> 1.7 (stabilized since PM) # INOCENTE- borderline oliguric. Most likely etiology is ATN, exact source unclear, possibly NSAIDs prior to admission and we are just catching the uptrend. No contrast given or other nephrotoxic meds. Did have some brief relative hypotension. Malignancy-associated GN a possibility but rate of rise of Cr unlikely. S/p nephrectomy in 1989. -No hydro on initial imaging -Now with alfaro catheter -UA with 100 protein, 15-25 hyaline casts, 1-5 granular casts -Continue to monitor -Discussed possibility of need for dialysis in the future, but hopefully will not need it at this point *Echo ordered *Will d/c IVF-- very unlikely intravascularly volume deplete # Hyperkalemia- possibly related to cell destruction from liver mets as remains elevated despite NPO and recent N/V/D *Given kayexalate and dose of IV lasix on 2 with multiple BM --K now improved Low K diet # Hyponatremia- --urine studies c/w volume depletion on admission --improved with IVF *Will d/v IVF now and CTM # Tachycardia- regular on exam. Concern for underlying infection vs. PE --planning for V/Q scan, echo, abdominal CT scan --Do not think 2/2 intravascular volume depletion # Likely esophageal cancer with liver mets-- abnormal LFTs --EGD postponed due to hyperkalemia Discussed with Dr. Ledbetter >35min spent on the care of this patient with >50% of time spent on counseling and coordination of care Objective: Vital Signs Temp Pulse Resp BP Pulse Ox 36.8 C 120 H 20 123/81 H 91 L 01/01/19 08:00 01/01/19 09:38 01/01/19 09:38 01/01/19 08:00 01/01/19 09:38 Laboratory Results 01/01/19 05:06 01/01/19 05:06 12/31/18 01/01/19 01/02/19 05:59 05:59 05:59 Intake Total 3547 300 Output Total 375 Balance 3172 300 PT 15.4 SEC (12.0-15.0) H 12/30/18 04:55 INR 1.20 (0.83-1.16) H 12/30/18 04:55 General- awake, alert, well-appearing, NAD Eyes- anicteric sclera, no conjunctival injection HEENT- MMM, no gross oral lesions, large cervantes CV- tachycardic, regular rate, no g/m/r Pulm- CTAB, no wheezes or rales, breathing comfortably on O2 NC Abd- obese, soft, mildly tender to palpation, +BS - alfaro catheter in place with some dark urine Skin- no rashes or bruising on exposed skin Extrem- 2+ lower extremity edema Psych- pleasant, answers questions appropriately ICD10 Worksheet Patient Problems: Problems Problem Status Onset Abdominal pain Acute Dehydration Acute Hyponatremia Acute Community acquired pneumonia Acute Hiatal hernia without gangrene and obstruction Acute Hypoxia Acute Interstitial lung disease Acute
[2019-01-01] MEDS: ONDANSETRON 4 MG/2 ML VIAL IVP PRN (11:45)
--- NOTE | 2019-01-01 12:02 | ECHO ---
[email or web address] [address] Main: [phone] Fax: Transthoracic Echocardiogram Name: PAVAN WEAVER MR#: [id number] Study Date: 01/01/2019 Study Time: 11:07 AM Date of : 1955 Age: 63 year(s) Height: 188 cm (74 in.) Weight: 135.63 kg (299 lb.) BSA: 2.58 m2 Gender: Male Examination: Echo Indication: Tachycardia Image Quality: Technically Difficult Contrast: Requested by: Raghu Ledbetter BP: 123 mmHg/81 mmHg Heart Rate: Rhythm: Indication: Tachycardia Procedure Staff Brief Writer: Abigail Duenas [facility] Reading Physician: Kwan Collado MD Requesting Provider: Conclusions: Grossly normal LV size and hyperdynamic function. . Grossly normal RV size ad function.. Grossly normal LA size. There is no significant mitral valve regurgitation. No mitral stenosis is present. There is no aortic valve regurgitation. No aortic valve stenosis is present. There is no significant tricuspid valve regurgitation. Pulmonary artery pressure is not obtained due to inadequate TR jet. No pericardial effusion. Very technically difficult exa due to tachycardia (113 bpm) and patient size. Measurements: Chambers Valvular Assessment AV/MV Valvular Assessment TV/PV Normal Normal Normal Name Value Range Name Value Range Name Value Range Ao Kasia (MM): 3.3 cm (2.2 cm-3.7 AV Vmax: 1.62 m/s (1 m/s-1.7 PV Vmax: 1.63 m/s (0.6 m/s-0.9 cm) m/s) m/s) LVOTd 2.1 cm 2.1 cm mm AV maxP mmHg ( - ) PV PGmax: 11 mmHg ( - ) LVOT Vmax: 1.42 m/s (0.7 m/s-1.1 m/s) ADDISON (Vmax): 3.0 cm2 ( - ) MV E Vmax: 0.62 m/s ( - ) MV A Vmax: 1.02 m/s ( - ) MV E/A: 0.61 ( - ) Continued Measurements: Additional Vessels Patient: PAVAN WEAVER Study Date: 01/01/2019 Page 1 of 2 11:07 AM Name Value Ao Ascendin.1 cm Findings: Left Ventricle: Grossly normal LV size and hyperdynamic function. . Right Ventricle: Grossly normal RV size ad function.. Left Atrium: Grossly normal LA size. Right Atrium: Grossly normal RA size. Mitral Valve: The mitral valve is normal in appearance and function. There is no significant mitral valve regurgitation. No mitral stenosis is present. Aortic Valve: Aortic valve is not well visualized. There is no aortic valve regurgitation. No aortic valve stenosis is present. Tricuspid Valve: Tricuspid valve not well visualized. There is no significant tricuspid valve regurgitation. Pulmonary artery pressure is not obtained due to inadequate TR jet. Pulmonic Valve: Pulmonary valve not well visualized. Aorta: Normal size aortic root measuring 3.3 cm. Normal size ascending aorta measuring 3.1 cm. IVC: The IVC is not well visualized. Pericardium: No pericardial effusion. Exam Comments: Very technically difficult exa due to tachycardia (113 bpm) and patient size. (No Signature Object) Patient: PAVAN WEAVER Study Date: 01/01/2019 Page 2 of 2 11:07 AM [id number]
--- NOTE | 2019-01-01 12:04 | SOAPPROG ---
SOAP Progress Note Assessment/Plan: Assessment: Edi is a very pleasant 63-year-old male who was found to have likely esophageal cancer with metastatic disease within the liver. 1. Presumed metastatic cancer: Based on his imaging it appears that he has an underlying esophageal primary with significant hepatic metastasis. He is scheduled to get a liver biopsy and upper endoscopy possibly tomorrow. 2. Decreased p.o. Intake: He might need a PEG tube in the future which he understands. 3. Renal failure: He did have some hyperkalemia yesterday that has resolved. Nephrology is following. 4. Tachycardia: He does have persistent tachycardia. I think it is sensible to work it up for pulmonary embolism. Unfortunately his renal function prohibits angiography. He is getting V/Q scan, echo and Dopplers today. D- dimers is unhelpful in this situation. 01/01/19 12:02 Subjective: Feels about the same today. His dyspnea is stable. Lower extremity edema he feels is better than yesterday. He has not been able to tolerate much by mouth. He was scheduled to undergo endoscopy today but is being delayed till tomorrow. Objective: Vital Signs Temp Pulse Resp BP Pulse Ox 36.4 C 118 H 17 122/73 H 93 01/01/19 11:47 01/01/19 11:47 01/01/19 11:47 01/01/19 11:47 01/01/19 11:47 Laboratory Results 01/01/19 05:06 01/01/19 05:06 12/31/18 01/01/19 01/02/19 05:59 05:59 05:59 Intake Total 3547 300 Output Total 375 Balance 3172 300 PT 15.4 SEC (12.0-15.0) H 12/30/18 04:55 INR 1.20 (0.83-1.16) H 12/30/18 04:55 General: Pleasant, conversant, at bedside HEENT: Nasal cannula in place oropharynx is clear Cardiovascular: Tachycardic regular rate and rhythm no murmurs gallops rubs Pulmonary: Clear to auscultation bilaterally Abdomen: Obese, soft nontender nondistended bowel sounds are present Extremities: 1+ pitting edema noted Psych: Appropriate affect ICD10 Worksheet Patient Problems: Problems Problem Status Onset Abdominal pain Acute Dehydration Acute Hyponatremia Acute Community acquired pneumonia Acute Hiatal hernia without gangrene and obstruction Acute Hypoxia Acute Interstitial lung disease Acute
--- NOTE | 2019-01-01 12:48 | ASMTCMCOM ---
CM Note CM Note Notes: Pt is a 63 year old male, last dsicharged independently on 12/07/18 for pnemonia. Pt being treated for nausea, vomiting, and dehydration. is at bedside. CM to follow. Plan: TBD Date Signed: 01/01/2019 12:48 PM Electronically Signed By:JOHNNY Anaya
[2019-01-01] MEDS ORDERED: NS 1,000 ML IV SCH (13:30)
--- NOTE | 2019-01-01 14:07 | SOAPPROG ---
SOAP Progress Note Assessment/Plan: Assessment:Plan: 1) Abnml Ct - prob esoph cancer with liver mets, needs tissue dx. EGD cancelled again today as potassium is higher then yesterday. The EGD is non- urgent. 2) Lytes - hyperkalemia, hyponatremia - needs to be improved prior to EGD 3) Diet - liquids for now 4) renal - cr up query pre-renal? discussed with Dr. Ledbetter 12/31/18 09:14 01/01/19 14:00 1) abnormal Ct scan - now with some air in the distal mesenteric vessels - no air centrally, no thickening of intestinal wall, no perf, no free air. abdo not surgical, unclear etiology, query from his coughing 2) prob Esoph Ca - EGD tomorrow if potassium and pt stable 3) lytes - follow labs, as per primary and renal 4) LFT's - c/w his metastatic dz 5) cardiac - tachy, VQ negative, CT with a small amount air in vessels but no sig inflammation of intestine, not clear why he is tachycardic will follow Subjective: CC- abml CT scan, dysphagia, esoph mass with liver mets pt feeling OK, some abdo pain but not rigid abdomen says he has been coughing a lot Objective: Vital Signs Temp Pulse Resp BP Pulse Ox 36.4 C 118 H 17 122/73 H 93 01/01/19 11:47 01/01/19 11:47 01/01/19 11:47 01/01/19 11:47 01/01/19 11:47 Laboratory Results 01/01/19 05:06 01/01/19 05:06 12/31/18 01/01/19 01/02/19 05:59 05:59 05:59 Intake Total 3547 300 Output Total 375 Balance 3172 300 PT 15.4 SEC (12.0-15.0) H 12/30/18 04:55 INR 1.20 (0.83-1.16) H 12/30/18 04:55 A+Ox3 CTA S1S2 tachy +BS, soft tender no rebound or guarding Laboratory Tests 12/30/18 12/31/18 01/01/19 04:55 05:38 05:06 WBC 15.54 H 12.46 H 16.51 H Total Bilirubin Conjugated Bilirubin AST ALT Alkaline Phosphatase 01/01/19 05:06 WBC Total Bilirubin 2.1 H Conjugated Bilirubin 1.7 H AST 335 H ALT 117 H Alkaline Phosphatase 1318 H ICD10 Worksheet Patient Problems: Problems Problem Status Onset Abdominal pain Acute Dehydration Acute Hyponatremia Acute Community acquired pneumonia Acute Hiatal hernia without gangrene and obstruction Acute Hypoxia Acute Interstitial lung disease Acute
--- NOTE | 2019-01-01 15:08 | HOSPPROG ---
Hospitalist Progress Note Assessment/Plan: # N/V - sx most c/w esophageal obstruction - EGD for further eval; may need PEG # esophageal thickening, diffuse hepatic mets, markedly abnormal LFTs - most c/w esophageal ca - will get EGD and liver bx for diagnosis - hx nephrectomy (he is unclear if he had RCC) in [address] Peace # oliguric renal failure - K better today - no HD needs at this time # tachycardia - doubt volume mediated at this point; VQ and US neg for clots; possibly d/t infection? # venous mesenteric gas, tachycardia, leukocytosis, elevated pct - will empirically start abx directed at abdominal infections - BCx NGTD # recent pneumonia - likely aspiration given current pathology - no clear pna on CT chest # hypoNa - resolved # hyperK - much improved # dvt ppx - start lovenox after biopsies Subjective: quite somnolent; no significant abd pain Objective: Vital Signs Temp Pulse Resp BP Pulse Ox 36.4 C 118 H 17 122/73 H 93 01/01/19 11:47 01/01/19 11:47 01/01/19 11:47 01/01/19 11:47 01/01/19 11:47 Laboratory Results 01/01/19 05:06 01/01/19 05:06 12/31/18 01/01/19 01/02/19 05:59 05:59 05:59 Intake Total 3547 300 Output Total 375 Balance 3172 300 PT 15.4 SEC (12.0-15.0) H 12/30/18 04:55 INR 1.20 (0.83-1.16) H 12/30/18 04:55 chart reviewed discussed with dr fortune ct reviewed - Physical Exam Constitutional: obese, uncomfortable Cardiovascular: no murmur, rub, or gallop, tachycardia Respiratory: no respiratory distress, no rales or rhonchi, clear to auscultation Gastrointestinal: normoactive bowel sounds, other (soft, mild epigastric pain), No guarding, No rebound, No distension ICD10 Worksheet Patient Problems: Problems Problem Status Onset Community acquired pneumonia Acute Hypoxia Acute Interstitial lung disease Acute Hiatal hernia without gangrene and obstruction Acute Dehydration Acute Hyponatremia Acute Abdominal pain Acute
[2019-01-01] MEDS: HYDROmorphONE/DILAUDID 1 MG/ML INJ IVP PRN (18:06)
[2019-01-02] MEDS: HYDROmorphONE/DILAUDID 1 MG/ML INJ IVP PRN ×2 (01:03→21:56)
[2019-01-02 07:50] LABS: PLATELET COUNT 246 10^3/uL (150-400)
[2019-01-02] MEDS: guaiFENesin 600 MG TAB.ER PO SCH ×2 (08:47→20:09)
[2019-01-02] MEDS: PANTOPRAZOLE SODIUM 40 MG TAB PO SCH (08:48)
[2019-01-02] MEDS: FLUCONAZOLE 100 MG TAB PO SCH (08:48)
[2019-01-02] MEDS: INSULIN LISPRO 100 UNIT/ML SC SCH ×3 (08:48→18:41)
[2019-01-02] MEDS: FLUTICASONE HFA 220 MCG MDI IH SCH ×2 (08:53→20:16)
--- NOTE | 2019-01-02 09:56 | SOAPPROG ---
SOAP Progress Note Assessment/Plan: Assessment/Plan: 63yo M with PMH significant for obesity, DM II, RCC s/p nephrectomy in [address] scan and abdominal ultrasound on admission concerning for esophageal cancer with liver mets as well as INOCENTE 2/2 to pre- renal azotemia vs ATN. INOCENTE on CKD -s/p nephrectomy in 1989 -No hydro on initial imaging, w with alfaro catheter -UA with 100 protein, 15-25 hyaline casts, 1-5 granular casts -Cr stable at 1.7 -echo and VQ results reviewed -Ellie <20, could consider gentle IVF if patient not eating -continue to monitor and will arrange f/u as outpatient pending clinical course Hyperkalemia-resolved, low K diet Hyponatremia-likely pseudo, improve BS control Likely esophageal cancer with liver mets-- abnormal LFTs -EGD planned with possible PEG -palliative consult recommended 01/02/19 12:02 Subjective: Made a lot more urine overnight. Objective: Vital Signs Temp Pulse Resp BP Pulse Ox 37.1 C 114 H 20 109/63 92 01/02/19 07:32 01/02/19 07:32 01/02/19 07:32 01/02/19 07:32 01/02/19 07:32 Laboratory Results 01/02/19 06:53 01/02/19 06:53 01/01/19 01/02/19 01/03/19 05:59 05:59 05:59 Intake Total 3547 1150 600 Output Total 375 900 Balance 3172 250 600 PT 15.4 SEC (12.0-15.0) H 12/30/18 04:55 INR 1.20 (0.83-1.16) H 12/30/18 04:55 Physical Exam - Physical Exam General Appearance: alert, other (resting) EENT: PERRL/EOMI Neck: non-tender, full range of motion, supple Respiratory: accessory muscle use, decreased breath sounds Cardiac/Chest: regular rate, rhythm Abdomen: normal bowel sounds, non-tender, soft Extremities: non-tender Neuro/Psych: normal mood/affect ICD10 Worksheet Patient Problems: Problems Problem Status Onset Abdominal pain Acute Dehydration Acute Hyponatremia Acute Community acquired pneumonia Acute Hiatal hernia without gangrene and obstruction Acute Hypoxia Acute Interstitial lung disease Acute
--- NOTE | 2019-01-02 13:37 | SOAPPROG ---
SOAP Progress Note Assessment/Plan: Assessment: Edi is a very pleasant 63-year-old male who was found to have likely esophageal cancer with metastatic disease within the liver. 1. Presumed metastatic cancer: Based on his imaging it appears that he has an underlying esophageal primary with significant hepatic metastasis. He should be getting his EGD and liver biopsy later today. 2. Decreased p.o. Intake: He might need a PEG tube in the future which he understands. 3. Renal failure: He did have some hyperkalemia yesterday that has resolved. Nephrology is following. 4. Tachycardia: He does have persistent tachycardia. Because of the persistent tachycardia and what appears to be gas in his mesenteric vessels, I would agree that empiric antibiotic coverage is warranted. Plan: - EGD - Possible PEG - Liver bx - Empiric abx - further discussion of prognosis when path is back. Subjective: Not much nausea at the moment. No significant pain. Objective: Vital Signs Temp Pulse Resp BP Pulse Ox 36.7 C 113 H 18 118/71 92 01/02/19 11:46 01/02/19 11:46 01/02/19 11:46 01/02/19 11:46 01/02/19 11:46 Laboratory Results 01/02/19 06:53 01/02/19 06:53 12/31/18 01/01/19 01/02/19 23:59 23:59 23:59 Intake Total 1999 2297 1000 Output Total 375 600 300 Balance 1625 1697 700 PT 15.4 SEC (12.0-15.0) H 12/30/18 04:55 INR 1.20 (0.83-1.16) H 12/30/18 04:55 Physical Exam - Physical Exam General Appearance: alert, no apparent distress Respiratory: rales (R base) Cardiac/Chest: tachycardia (regular) Abdomen: other (very mild tenderness without rebound tenderness) Skin: warm/dry Extremities: swelling (2+LE bilateral) Neuro/Psych: alert, normal mood/affect, oriented x 3 ICD10 Worksheet Patient Problems: Problems Problem Status Onset Abdominal pain Acute Dehydration Acute Hyponatremia Acute Community acquired pneumonia Acute Hiatal hernia without gangrene and obstruction Acute Hypoxia Acute Interstitial lung disease Acute
[2019-01-02] MEDS ORDERED: LR 1,000 ML IV ONE (14:52)
--- NOTE | 2019-01-02 15:02 | ASMTCMCOM ---
CM Note CM Note Notes: Patient plan of care reviewed in rounds. 63 year old male found to have presumed esophageal cancer with metastatic disease to his liver. For EGD and liver biopsy today. at bedside. CM to follow for needs. Plan: TBD Date Signed: 01/02/2019 03:01 PM Electronically Signed By:Marilyn Soto RN
--- NOTE | 2019-01-02 15:20 | PDANEPAE ---
ANE Past Medical History - Pulmonary History Hx Oxygen in Use at Home: No Hx Sleep Apnea: No Sleep Apnea Screening Result - Last Documented: Positive - Endocrine History Hx Diabetes: Yes - Chronic Pain History Chronic Pain: No ANE Review of Systems Review of Systems: ANE Patient History - Allergies Allergies/Adverse Reactions: No Known Allergies Allergy (Verified 12/30/18 04:31) - Home Medications Home Medications: Albuterol [Proventil Inhaler HFA (*)] 1 - 2 puffs IH Q4H PRN 12/30/18 [Last Taken 12/29/18] Codeine Phosphate/Guaifenesin [Guaifenesin-Codeine Syrup] 10 ml PO Q8HRS PRN 12/17 [Last Taken 12/30/18 00:00] Fluconazole [Diflucan] 200 mg PO DAILY 12/30/18 [Last Taken 12/29/18] Fluticasone Hfa 220 Mcg [Flovent 220 MCG Hfa MDI (*)] 2 puffs IH BID 12/30/18 [ Last Taken 12/29/18 21:00] Omeprazole 40 mg PO DAILY 12/30/18 [Last Taken 12/29/18] guaiFENesin [Mucinex 600 MG (*)] 600 mg PO BID 12/30/18 [Last Taken 12/29/18 21: 00] metFORMIN SR [Glucophage XR 500 mg (*)] 2,000 mg PO DAILY@1800 12/30/18 [Last Taken 12/29/18] - NPO status NPO Since - Liquids (Date): 01/02/19 NPO Since - Liquids (Time): 04:00 NPO Since - Solids (Date): 01/02/19 NPO Since - Solids (Time): 04:00 - Smoking Hx Smoking Status: Never smoked SANDY Labs/Vital Signs - Labs Result Diagrams: 01/02/19 06:53 01/02/19 06:53 - Vital Signs Blood Pressure: 109/76 Heart Rate: 117 Respiratory Rate: 18 O2 Sat (%): 90 Height: 187.96 cm Weight: 131.542 kg ANE Physical Exam - Airway Neck exam: FROM Mallampati Score: Class 1 Mouth exam: normal dental/mouth exam - Pulmonary Pulmonary: no respiratory distress - Cardiovascular Cardiovascular: regular rate and rhythym - ASA Status ASA Status: III ANE Anesthesia Plan Anesthesia Plan: general endotracheal anesthesia, GA with mask
[2019-01-02] MEDS ORDERED: PROPOFOL 200 MG/20 ML VIAL ONE ×2 (15:25→15:34)
[2019-01-02] MEDS ORDERED: LIDOCAINE 2% 5 ML SDV ONE (15:25)
--- NOTE | 2019-01-02 15:30 | HOSPPROG ---
Hospitalist Progress Note Assessment/Plan: # N/V - sx most c/w esophageal obstruction - EGD for further eval; will likely need PEG # esophageal thickening, diffuse hepatic mets, markedly abnormal LFTs - most c/w esophageal ca - will get EGD and liver bx for diagnosis - hx nephrectomy (he is unclear if he had RCC) in [address] Peace # oliguric renal failure - K better today - no HD needs at this time # tachycardia - doubt volume mediated at this point; VQ and US neg for clots; possibly d/t infection vs cancer burden # venous mesenteric gas, tachycardia, leukocytosis, elevated pct - continue rocephin/flagyl for now - BCx NGTD # recent pneumonia - likely aspiration given current pathology - no clear pna on CT chest # hypoNa - resolved # hyperK - improved # dvt ppx - start lovenox after biopsies Subjective: still very weak; seen with his Objective: Vital Signs Temp Pulse Resp BP Pulse Ox 37.0 C 117 H 18 109/76 90 L 01/02/19 14:53 01/02/19 15:20 01/02/19 15:20 01/02/19 15:20 01/02/19 15:20 Laboratory Results 01/02/19 06:53 01/02/19 06:53 01/01/19 01/02/19 01/03/19 05:59 05:59 05:59 Intake Total 3547 1150 600 Output Total 375 900 Balance 3172 250 600 PT 15.4 SEC (12.0-15.0) H 12/30/18 04:55 INR 1.20 (0.83-1.16) H 12/30/18 04:55 high risk - Physical Exam Constitutional: no apparent distress, appears nourished Eyes: anicteric sclera Ears, Nose, Mouth, Throat: hearing normal Cardiovascular: edema (1+ bilat LE) Respiratory: no respiratory distress Gastrointestinal: normoactive bowel sounds, soft, non-tender abdomen Genitourinary: No alfaro in urethra Skin: warm Musculoskeletal: full muscle strength Neurologic: AAOx3 Psychiatric: not anxious ICD10 Worksheet Patient Problems: Problems Problem Status Onset Community acquired pneumonia Acute Hypoxia Acute Interstitial lung disease Acute Hiatal hernia without gangrene and obstruction Acute Dehydration Acute Hyponatremia Acute Abdominal pain Acute
--- NOTE | 2019-01-02 15:47 | GIREPORT ---
[facility] - Endoscopy Department Patient Name: Edi Choe Procedure Date: 01/02/2019 3:08 PM Patient Type: Inpatient Attending MD/ ER Physician: Omero Hemphill MD Procedure: Upper GI endoscopy Indications: Abnormal CT of the GI tract - esophageal mass and liver mets Providers: Omero Hemphill MD Referring MD: Belkys Hewitt MD Medicines: Propofol per Anesthesia = IV general with spontaneous respirations Complications: No immediate complications. Estimated blood loss: Minimal. Description of Procedure: After obtaining informed consent, the endoscope was passed under direct vision. Throughout the procedure, the patient's blood pressure, pulse, and oxygen saturations were monitored continuously. The Endoscope was intro duced through the mouth, and advanced to the second part of duodenum. The [facility] er GI endoscopy was accomplished without difficulty. The patient tolerated e procedure well. Findings: A large, fungating and ulcerating mass with no bleeding and no stigmata of recent bleeding was found in the middle third of the esophagus and in t he lower third of the esophagus. The mass was partially obstructing and partially circumferential (involving one-half of the lumen circumferenc e). Biopsies were taken with a cold forceps for histology. Estimated blood loss was minimal. The entire examined stomach was normal. The examined duodenum was normal. The exam was otherwise without abnormality. Estimated Blood Loss: Estimated blood loss was minimal. 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 Biopsied. - Normal stomach. - Normal examined duodenum. - The examination was otherwise normal. Recommendation: - Await pathology results. - My office will call with the pathology result with 5-7 days. If you h ave not heard from my office by 12-14, do not assume the pathology is massimo l, please call [phone] to get the pathology results. - Return patient to [facility] for ongoing care. - Clear liquid diet. - He would either need a PEG or maybe an esophageal stent for intake/feeding. I think a endoscopically placed PEG would traverse his esophogeal lesion with some trauma. A stent would allow for PO intake b ut may migrate with treatment of his presumed cancer. - Thank you for allowing me to help in your patient's care. Do not hesi lew to call with any questions. Attending Participation: I personally performed the entire procedure. Joby Martinez M.D Omero Hemphill MD 01/02/2019 3:47:12 PM This report has been signed electronicallyMatthew MD Joby Number of Addenda: 0 Note Initiated On: 01/02/2019 3:08 PM [email or web address]
[2019-01-02] MEDS ORDERED: NALOXONE HCL 0.4 MG/ML INJ IVP PRN (15:52)
[2019-01-02] MEDS ORDERED: ONDANSETRON 4 MG/2 ML VIAL IVP PRN (15:52)
--- NOTE | 2019-01-02 15:54 | POSTANESTH ---
Post Anesthetic Evaluation Cardiovascular Status: Normal, Stable Respiratory Status: Normal, Stable Level of Consciousness/Mental Status: Can Participate in Eval Pain Control: Adequate, Prn Tx Ordered Nausea/Vomiting Control: Adequate, Prn Tx Ordered Complications Possibly Related to Anesthesia: None Noted
[2019-01-02] MEDS: fentaNYL 100 MCG/2 ML INJ IVP PRN ×2 (16:04→16:16)
[2019-01-02] MEDS ORDERED: fentaNYL 100 MCG/2 ML INJ ONE (16:04)
--- NOTE | 2019-01-02 17:48 | SOAPPROG ---
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 Yoon from [facility] - prob no need to bx liver if my esoph bx are diagnostic discussed PEG vs Stent vs liquid diet Dr. Forbes who does our stents is out of town until next week. will follow Omero Hemphill MD [phone] Objective: Vital Signs Temp Pulse Resp BP Pulse Ox 37.1 C 116 H 18 109/69 91 L 01/02/19 16:51 01/02/19 16:51 01/02/19 16:51 01/02/19 16:51 01/02/19 16:51 Laboratory Results 01/02/19 06:53 01/02/19 06:53 01/01/19 01/02/19 01/03/19 05:59 05:59 05:59 Intake Total 3547 1150 1420 Output Total 375 900 5 Balance 3172 250 1415 PT 15.4 SEC (12.0-15.0) H 12/30/18 04:55 INR 1.20 (0.83-1.16) H 12/30/18 04:55 ICD10 Worksheet Patient Problems: Problems Problem Status Onset Abdominal pain Acute Dehydration Acute Hyponatremia Acute Community acquired pneumonia Acute Hiatal hernia without gangrene and obstruction Acute Hypoxia Acute Interstitial lung disease Acute
[2019-01-03 05:14] LABS: PLATELET COUNT 262 10^3/uL (150-400)
[2019-01-03] MEDS ORDERED: LIDOCAINE 1% 300 MG/30 ML SDV ONE (07:49)
[2019-01-03] MEDS: FLUTICASONE HFA 220 MCG MDI IH SCH ×2 (08:29→20:24)
[2019-01-03] MEDS: HYDROmorphONE/DILAUDID 1 MG/ML INJ IVP PRN ×2 (09:17→21:18)
[2019-01-03] MEDS: FLUCONAZOLE 100 MG TAB PO SCH (09:17)
[2019-01-03] MEDS: PANTOPRAZOLE SODIUM 40 MG TAB PO SCH (09:17)
[2019-01-03] MEDS: guaiFENesin 600 MG TAB.ER PO SCH ×2 (09:17→20:59)
[2019-01-03] MEDS: INSULIN LISPRO 100 UNIT/ML SC SCH ×3 (09:18→17:49)
--- NOTE | 2019-01-03 09:34 | SOAPPROG ---
SOAP Progress Note Assessment/Plan: Assessment/Plan: 63yo M with PMH significant for obesity, DM II, RCC s/p nephrectomy in [address] scan and abdominal ultrasound on admission concerning for esophageal cancer with liver mets as well as INOCENTE 2/2 to pre- renal azotemia vs possible hepatorenal physiology. 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 Objective: Vital Signs Temp Pulse Resp BP Pulse Ox 36.8 C 108 H 18 124/84 H 91 L 01/03/19 07:37 01/03/19 08:33 01/03/19 08:33 01/03/19 07:37 01/03/19 07:37 Laboratory Results 01/03/19 04:08 01/03/19 04:08 01/02/19 01/03/19 01/04/19 05:59 05:59 05:59 Intake Total 1150 1820 550 Output Total 900 380 Balance 250 1440 550 PT 15.4 SEC (12.0-15.0) H 12/30/18 04:55 INR 1.20 (0.83-1.16) H 12/30/18 04:55 Physical Exam - Physical Exam General Appearance: alert, mild distress, obese EENT: PERRL/EOMI Neck: non-tender, full range of motion, supple Respiratory: chest non-tender, lungs clear Cardiac/Chest: regular rate, rhythm Abdomen: normal bowel sounds Skin: warm/dry, pallor Neuro/Psych: no motor/sensory deficits, alert, normal mood/affect ICD10 Worksheet Patient Problems: Problems Problem Status Onset Abdominal pain Acute Dehydration Acute Hyponatremia Acute Community acquired pneumonia Acute Hiatal hernia without gangrene and obstruction Acute Hypoxia Acute Interstitial lung disease Acute
[2019-01-03] MEDS ORDERED: NS 1,000 ML IV SCH (09:45)
[2019-01-03] MEDS: ENOXAPARIN 40 MG/0.4 ML SYR SC SCH (12:18)
--- NOTE | 2019-01-03 12:24 | SOAPPROG ---
GIOVANNI Progress Note Assessment/Plan: Assessment: Edi is a very pleasant 63-year-old male who was found to have likely esophageal cancer with metastatic disease within the liver. 1. Presumed metastatic cancer: Based on his imaging it appears that he has an underlying esophageal primary with significant hepatic metastasis. Esophageal biopsies obtained yesterday. Liver bx cancelled. 2. Decreased p.o. Intake: He is currently having success with a liquid diet. I did discuss stent vs. PEG. Will hold off for now. 3. Renal failure: Renal fxn is a little better today 4. Tachycardia: He does have persistent tachycardia. 115 BPM today. Because of the persistent tachycardia and what appears to be gas in his mesenteric vessels, I would agree that empiric antibiotic coverage is warranted. Plan: - check bx when available - probably tomorrow - hold PEG for now - Start appropriate chemo while in hospital - I'm guessing . - Empiric abx Subjective: Feels better after his shower. Objective: Vital Signs Temp Pulse Resp BP Pulse Ox 36.8 C 115 H 18 111/59 L 93 01/03/19 11:42 01/03/19 11:42 01/03/19 11:42 01/03/19 11:42 01/03/19 11:42 Laboratory Results 01/03/19 04:08 01/03/19 04:08 01/01/19 01/02/19 01/03/19 23:59 23:59 23:59 Intake Total 2297 1820 1450 Output Total 600 405 450 Balance 1697 1415 1000 PT 15.4 SEC (12.0-15.0) H 12/30/18 04:55 INR 1.20 (0.83-1.16) H 12/30/18 04:55 Physical Exam - Physical Exam General Appearance: alert, no apparent distress Respiratory: lungs clear Cardiac/Chest: edema (2+ bilateral pedal) Abdomen: normal bowel sounds Skin: warm/dry Neuro/Psych: alert, normal mood/affect, oriented x 3 ICD10 Worksheet Patient Problems: Problems Problem Status Onset Abdominal pain Acute Dehydration Acute Hyponatremia Acute Community acquired pneumonia Acute Hiatal hernia without gangrene and obstruction Acute Hypoxia Acute Interstitial lung disease Acute
[2019-01-03] MEDS: ONDANSETRON 4 MG/2 ML VIAL IVP PRN (15:07)
--- NOTE | 2019-01-03 15:21 | HOSPPROG ---
Hospitalist Progress Note Assessment/Plan: 63 yo M w likely metastatic esophageal cancer N/V - sx most c/w esophageal obstruction - EGD w mass likely needs peg esophageal thickening, diffuse hepatic mets, markedly abnormal LFTs - most c/w esophageal ca path pending oliguric renal failure - K better today - no HD needs at this time ? contrast induced tachycardia - doubt volume mediated at this point; VQ and US neg for clots; possibly d/t infection vs cancer burden check tsh or completeness venous mesenteric gas, tachycardia, leukocytosis, elevated pct - continue rocephin/flagyl for now day 35 - BCx NGTD # recent pneumonia - likely aspiration given current pathology - no clear pna on CT chest hypoNa - resolved hyperK - improved # dvt ppx - lovenox Subjective: awaiting path. case d/w dr hankins Objective: Vital Signs Temp Pulse Resp BP Pulse Ox 36.8 C 115 H 18 111/59 L 93 01/03/19 11:42 01/03/19 11:42 01/03/19 11:42 01/03/19 11:42 01/03/19 11:42 Laboratory Results 01/03/19 04:08 01/03/19 04:08 01/02/19 01/03/19 01/04/19 05:59 05:59 05:59 Intake Total 1150 1820 1050 Output Total 900 380 175 Balance 250 1440 875 PT 15.4 SEC (12.0-15.0) H 12/30/18 04:55 INR 1.20 (0.83-1.16) H 12/30/18 04:55 ICD10 Worksheet Patient Problems: Problems Problem Status Onset Abdominal pain Acute Dehydration Acute Hyponatremia Acute Community acquired pneumonia Acute Hiatal hernia without gangrene and obstruction Acute Hypoxia Acute Interstitial lung disease Acute
[2019-01-03] MEDS: oxyCODONE IR 5 MG TAB PO PRN (17:58)
--- NOTE | 2019-01-03 18:59 | SOAPPROG ---
SOAP Progress Note Assessment/Plan: Assessment:Plan: 1) esoph mass - adenocarcinoma by path c/w his long standing GERD causing Perry's and progression to adenocarcinoma 2) Diet - tolerating liquid diet right now. Discussed options of PEG and stent and he would like to see how his PO nutrition is with treatment prior to stent ( which he prefers over PEG) 3) Tachy - I order EKG to make sure it is sinus tach and not Afib -- it is only sinus tach on EKG 4) Abnml Ct with some air in mesentery - unclear etiology, ?from coughing. ON abx as per Oncology 01/03/19 18:59 Subjective: cc- esoph mass = adenocarcinoma he looks better today, still tachy no adbo pain, no f/c/s Objective: Vital Signs Temp Pulse Resp BP Pulse Ox 37.0 C 114 H 18 133/70 H 94 01/03/19 15:28 01/03/19 15:28 01/03/19 15:28 01/03/19 15:28 01/03/19 15:28 Laboratory Results 01/03/19 04:08 01/03/19 04:08 01/02/19 01/03/19 01/04/19 05:59 05:59 05:59 Intake Total 1150 1820 1550 Output Total 900 380 175 Balance 250 1440 1375 PT 15.4 SEC (12.0-15.0) H 12/30/18 04:55 INR 1.20 (0.83-1.16) H 12/30/18 04:55 A+Ox3 CTA S1S2, tachy +BS, soft, nt EKG = sinus tach ICD10 Worksheet Patient Problems: Problems Problem Status Onset Abdominal pain Acute Dehydration Acute Hyponatremia Acute Community acquired pneumonia Acute Hiatal hernia without gangrene and obstruction Acute Hypoxia Acute Interstitial lung disease Acute
[2019-01-03] MEDS: SODIUM BICARBONATE 650 MG TAB PO SCH (20:59)
[2019-01-04] MEDS: INSULIN LISPRO 100 UNIT/ML SC SCH ×3 (08:49→18:41)
[2019-01-04] MEDS: ENOXAPARIN 40 MG/0.4 ML SYR SC SCH (08:50)
[2019-01-04] MEDS: FLUCONAZOLE 100 MG TAB PO SCH (08:51)
[2019-01-04] MEDS: ONDANSETRON 4 MG/2 ML VIAL IVP PRN (08:51)
[2019-01-04] MEDS: guaiFENesin 600 MG TAB.ER PO SCH ×2 (08:52→20:26)
[2019-01-04] MEDS: SODIUM BICARBONATE 650 MG TAB PO SCH ×2 (08:52→20:26)
[2019-01-04] MEDS: PANTOPRAZOLE SODIUM 40 MG TAB PO SCH (08:52)
[2019-01-04] MEDS: FLUTICASONE HFA 220 MCG MDI IH SCH ×2 (08:57→20:30)
[2019-01-04] MEDS: HYDROmorphONE/DILAUDID 1 MG/ML INJ IVP PRN (08:59)
[2019-01-04] MEDS: ONDANSETRON DISINTEGRATING 4 MG TAB PO PRN ×2 (11:16→20:26)
[2019-01-04] MEDS ORDERED: morphINE 10 MG/0.5 ML UDSYR PO PRN (11:29)
[2019-01-04] MEDS ORDERED: NS 500 ML IV ONE (11:31)
--- NOTE | 2019-01-04 11:33 | HOSPPROG ---
Hospitalist Progress Note Assessment/Plan: 63 yo M w likely metastatic esophageal cancer N/V - sx most c/w esophageal obstruction - EGD w mass; path + for adenocarcinoma likely needs peg esophageal thickening, diffuse hepatic mets, markedly abnormal LFTs - most c/w esophageal ca see above oliguric renal failure- poor po intak tachycardia - doubt volume mediated at this point; VQ and US neg for clots; possibly d/t infection vs cancer burden tsh slightly low bolus and ollow response thyroid: suspect sick euthyroid check t3, t4 venous mesenteric gas, tachycardia, leukocytosis, elevated pct - continue rocephin/flagyl for now day 4/5 - BCx NGTD # recent pneumonia - likely aspiration given current pathology - no clear pna on CT chest hypoNa - resolved hyperK - improved # dvt ppx - lovenox Objective: Vital Signs Temp Pulse Resp BP Pulse Ox 36.7 C 113 H 20 117/71 92 01/04/19 07:43 01/04/19 07:43 01/04/19 07:43 01/04/19 07:43 01/04/19 07:43 Laboratory Results 01/03/19 04:08 01/04/19 04:38 01/03/19 01/04/19 01/05/19 05:59 05:59 05:59 Intake Total 1820 1950 Output Total 380 425 Balance 1440 1525 PT 15.4 SEC (12.0-15.0) H 12/30/18 04:55 INR 1.20 (0.83-1.16) H 12/30/18 04:55 - Physical Exam Constitutional: no apparent distress, appears nourished Eyes: PERRL, anicteric sclera Ears, Nose, Mouth, Throat: moist mucous membranes, hearing normal Cardiovascular: regular rate and rhythym, no murmur, rub, or gallop Respiratory: no respiratory distress, no rales or rhonchi Gastrointestinal: normoactive bowel sounds, soft, non-tender abdomen Genitourinary: no bladder fullness, No alfaro in urethra Skin: warm, normal color Musculoskeletal: No full muscle strength Neurologic: AAOx3 ICD10 Worksheet Patient Problems: Problems Problem Status Onset Abdominal pain Acute Dehydration Acute Hyponatremia Acute Community acquired pneumonia Acute Hiatal hernia without gangrene and obstruction Acute Hypoxia Acute Interstitial lung disease Acute
[2019-01-04] MEDS ORDERED: PROMETHAZINE HCL 25 MG/ML INJ IVP PRN (12:01)
[2019-01-04] MEDS ORDERED: ALBUMIN 25% 100 ML IV ONE (12:02)
--- NOTE | 2019-01-04 12:08 | ASMTCMCOM ---
CM Note CM Note Notes: Patient plan of care reviewed in rounds. 63 year old male with new diagnosis of esophageal cancer with metastatic disease to liver. Lives with his in [place]. Plan of care unclear at this time. Difficulty swallowing reported by patient. CM to follow for needs. Plan: TBD Date Signed: 01/04/2019 12:07 PM Electronically Signed By:Marilyn Soto RN
--- NOTE | 2019-01-04 14:03 | SOAPPROG ---
SOAP Progress Note Assessment/Plan: Assessment: Edi is a very pleasant 63-year-old male who was found to have likely esophageal cancer with metastatic disease within the liver. 1. Metastatic esophageal adenoCA - he needs palliative chemo, but at the moment there are a couple of issues that a standing in the way of starting therapy. The first is his renal insufficiency and the second is his poor nutritional status. Most of the regimens we an use are [place] based, which will be a challenge if he has unstable and worsening renal function. Ideally, we also need to know his HER2 status to know if adding Herceptin is appropriate or not. 2. Decreased p.o. Intake: He is having a worsening time with oral intake - even fluids. I would recommend a PEG tube. 3. Renal failure: Renal fxn is a little worse today. Cr. 1.8 4. Tachycardia: Likely multifactorial Plan: - check HER2 on biopsy when available - I would recommend a PEG tube at this point - Start appropriate chemo while in hospital - He isn't ready yet. - Empiric abx Subjective: nauseated. not eating even fluids. Objective: Vital Signs Temp Pulse Resp BP Pulse Ox 36.5 C 106 H 14 116/70 92 01/04/19 12:09 01/04/19 12:09 01/04/19 12:09 01/04/19 12:09 01/04/19 12:09 Laboratory Results 01/03/19 04:08 01/04/19 04:38 01/02/19 01/03/19 01/04/19 23:59 23:59 23:59 Intake Total 1820 1950 825 Output Total 405 450 250 Balance 1415 1500 575 PT 15.4 SEC (12.0-15.0) H 12/30/18 04:55 INR 1.20 (0.83-1.16) H 12/30/18 04:55 Physical Exam - Physical Exam General Appearance: mild distress Respiratory: lungs clear Cardiac/Chest: tachycardia Abdomen: normal bowel sounds Skin: pallor Neuro/Psych: oriented x 3, depressed affect ICD10 Worksheet Patient Problems: Problems Problem Status Onset Abdominal pain Acute Dehydration Acute Hyponatremia Acute Community acquired pneumonia Acute Hiatal hernia without gangrene and obstruction Acute Hypoxia Acute Interstitial lung disease Acute
--- NOTE | 2019-01-04 14:37 | SOAPPROG ---
SOAP Progress Note Assessment/Plan: Assessment: INOCENTE, creat stable 1.6-1.8 past several says metastatic esophageal cancer, needs palliative chemo nausea and anorexia, says ice cream tastes goo, I told him its OK with me depressed about his situation Plan: encouraged PO, likely will need PEG to meet his nutritional needs continue other therapies would like to see how things go today prior to pushing diuresis follow lytes vol and renal function 01/04/19 14:34 Objective: Vital Signs Temp Pulse Resp BP Pulse Ox 36.5 C 106 H 14 116/70 92 01/04/19 12:09 01/04/19 12:09 01/04/19 12:09 01/04/19 12:09 01/04/19 12:09 Laboratory Results 01/03/19 04:08 01/04/19 04:38 01/03/19 01/04/19 01/05/19 05:59 05:59 05:59 Intake Total 1820 1950 425 Output Total 380 425 140 Balance 1440 1525 285 PT 15.4 SEC (12.0-15.0) H 12/30/18 04:55 INR 1.20 (0.83-1.16) H 12/30/18 04:55 Physical Exam - Physical Exam General Appearance: alert, obese Neck: normal inspection Respiratory: rales, wheezing, No rhonchi Cardiac/Chest: regular rate, rhythm, edema, No systolic murmur, No friction rub Abdomen: normal bowel sounds, non-tender Extremities: swelling Neuro/Psych: alert, oriented x 3, depressed affect ICD10 Worksheet Patient Problems: Problems Problem Status Onset Abdominal pain Acute Dehydration Acute Hyponatremia Acute Community acquired pneumonia Acute Hiatal hernia without gangrene and obstruction Acute Hypoxia Acute Interstitial lung disease Acute
--- NOTE | 2019-01-04 18:44 | SOAPPROG ---
SOAP Progress Note Assessment/Plan: Assessment:Plan: 1) esoph mass - adenocarcinoma by path c/w his long standing GERD causing Perry's and progression to adenocarcinoma 2) Diet - tolerating liquid diet right now. Discussed options of PEG and stent and he would like to see how his PO nutrition is with treatment prior to stent ( which he prefers over PEG) 3) Tachy - I order EKG to make sure it is sinus tach and not Afib -- it is only sinus tach on EKG 4) Abnml Ct with some air in mesentery - unclear etiology, ?from coughing. ON abx as per Oncology 01/03/19 18:59 01/04/19 18:42 as above Nutrition - he prefers stent but may need PEG. I will discuss again tomorrow. I am a bit worried about pulling a PEg down his esophagus with his mass will return tomorrow Subjective: CC- esradha mass, dysphagia hoping to avoid PEG he wants to take PO no f/c/s no pain Objective: Vital Signs Temp Pulse Resp BP Pulse Ox 36.5 C 107 H 16 109/103 H 92 01/04/19 15:54 01/04/19 15:54 01/04/19 15:54 01/04/19 15:54 01/04/19 15:54 Laboratory Results 01/03/19 04:08 01/04/19 04:38 01/03/19 01/04/19 01/05/19 05:59 05:59 05:59 Intake Total 1820 1950 1325 Output Total 380 425 550 Balance 1440 1525 775 PT 15.4 SEC (12.0-15.0) H 12/30/18 04:55 INR 1.20 (0.83-1.16) H 12/30/18 04:55 CTA S1S2, tachy +BS, soft ICD10 Worksheet Patient Problems: Problems Problem Status Onset Abdominal pain Acute Dehydration Acute Hyponatremia Acute Community acquired pneumonia Acute Hiatal hernia without gangrene and obstruction Acute Hypoxia Acute Interstitial lung disease Acute
[2019-01-04] MEDS: oxyCODONE IR 5 MG TAB PO PRN (20:26)
[2019-01-05 05:30] LABS: INR 1.69 (0.83-1.16)
[2019-01-05] MEDS: FLUTICASONE HFA 220 MCG MDI IH SCH ×2 (08:33→20:43)
[2019-01-05] MEDS: SODIUM BICARBONATE 650 MG TAB PO SCH ×2 (09:04→20:43)
[2019-01-05] MEDS: guaiFENesin 600 MG TAB.ER PO SCH ×2 (09:04→20:43)
[2019-01-05] MEDS: PANTOPRAZOLE SODIUM 40 MG TAB PO SCH (09:04)
[2019-01-05] MEDS: HYDROmorphONE/DILAUDID 1 MG/ML INJ IVP PRN (10:22)
[2019-01-05] MEDS: INSULIN LISPRO 100 UNIT/ML SC SCH ×2 (11:26→23:21)
--- NOTE | 2019-01-05 14:24 | SOAPPROG ---
GIOVANNI Progress Note Assessment/Plan: Assessment: Edi is a very pleasant 63-year-old male who was found to have likely esophageal cancer with metastatic disease within the liver. 1. Metastatic esophageal adenoCA - he needs palliative chemo, but at the moment there are a couple of issues that a standing in the way of starting therapy. The first is his renal insufficiency and the second is his poor nutritional status. Most of the regimens we an use are [place] based, which will be a challenge if he has unstable and worsening renal function. Ideally, we also need to know his HER2 status to know if adding Herceptin is appropriate or not. His creatinine is down a little today to 1.7 2. Decreased p.o. Intake: He is having a worsening time with oral intake - even fluids. I would recommend a PEG tube. I spoke with Dr. Hemphill about this. He will arrange surgical placement. The patient is not a good candidate for IR placement because of overlying bowel at insertion site 3. Renal failure: Renal fxn is a little better today at Cr 1.7 4. Tachycardia: Likely multifactorial Plan: - check HER2 on biopsy when available - I would recommend a PEG tube at this point - to be placed surgically - Start appropriate chemo while in hospital - He isn't ready yet. - Empiric abx Subjective: Had a small bowel movement this afternoon. He understands the need for a PEG Objective: Vital Signs Temp Pulse Resp BP Pulse Ox 37.1 C 109 H 14 116/69 91 L 01/05/19 11:01 01/05/19 11:01 01/05/19 11:01 01/05/19 11:01 01/05/19 11:01 Laboratory Results 01/05/19 04:39 01/05/19 04:39 01/03/19 01/04/19 01/05/19 23:59 23:59 23:59 Intake Total 1950 1725 210 Output Total 450 800 50 Balance 1500 925 160 PT 20.0 SEC (12.0-15.0) H 01/05/19 04:39 INR 1.69 (0.83-1.16) H 01/05/19 04:39 Physical Exam - Physical Exam General Appearance: alert, mild distress Respiratory: lungs clear Cardiac/Chest: regular rate, rhythm Abdomen: soft ICD10 Worksheet Patient Problems: Problems Problem Status Onset Abdominal pain Acute Dehydration Acute Hyponatremia Acute Community acquired pneumonia Acute Hiatal hernia without gangrene and obstruction Acute Hypoxia Acute Interstitial lung disease Acute
--- NOTE | 2019-01-05 15:26 | ASMTCMCOM ---
CM Note CM Note Notes: Patient had PEG tube placed. Referral sent to [facility] as alert; d/c date is still pending. [facility] met with patient and and they would like to sign up for both inpatient and outpatient palliative services. Case Management will assist with other d.c needs. Current CM Discharge plan: [facility], and [facility] for tube feeds (TBD) Date Signed: 01/05/2019 03:26 PM Electronically Signed By:Yodit Herr RN
--- NOTE | 2019-01-05 15:37 | HOSPPROG ---
Hospitalist Progress Note Assessment/Plan: 63 yo M w likely metastatic esophageal cancer N/V - sx most c/w esophageal obstruction - EGD w mass; path + for adenocarcinoma needs surgical G tube as colon overlying stomach, precluding endoscopic or IR placement tachycardia - doubt volume mediated at this point; VQ and US neg for clots; possibly d/t infection vs cancer burden tsh slightly low bolus and follow response no clear cause and improving cr suggest euvolemia follow thyroid: suspect sick euthyroid t3 and t4 ok- sick euthyroid venous mesenteric gas, tachycardia, leukocytosis, elevated pct - continue rocephin/flagyl for now day 04/02 dc abx today - BCx NGTD # recent pneumonia - likely aspiration given current pathology - no clear pna on CT chest hypoNa - resolved hyperK - improved # dvt ppx - lovenox Subjective: case d/w dr hankins Objective: Vital Signs Temp Pulse Resp BP Pulse Ox 37.1 C 109 H 14 116/69 91 L 01/05/19 11:01 01/05/19 11:01 01/05/19 11:01 01/05/19 11:01 01/05/19 11:01 Laboratory Results 01/05/19 04:39 01/05/19 04:39 01/04/19 01/05/19 01/06/19 05:59 05:59 05:59 Intake Total 1950 1535 Output Total 425 600 Balance 1525 935 PT 20.0 SEC (12.0-15.0) H 01/05/19 04:39 INR 1.69 (0.83-1.16) H 01/05/19 04:39 - Physical Exam Constitutional: no apparent distress, appears nourished Eyes: PERRL, anicteric sclera Ears, Nose, Mouth, Throat: moist mucous membranes, hearing normal Cardiovascular: regular rate and rhythym, no murmur, rub, or gallop, systolic murmur Respiratory: no respiratory distress, no rales or rhonchi Gastrointestinal: normoactive bowel sounds, soft, non-tender abdomen, No guarding, No rebound Genitourinary: no bladder fullness, No alfaro in urethra Skin: warm, normal color Musculoskeletal: full muscle strength Neurologic: AAOx3 ICD10 Worksheet Patient Problems: Problems Problem Status Onset Abdominal pain Acute Dehydration Acute Hyponatremia Acute Community acquired pneumonia Acute Hiatal hernia without gangrene and obstruction Acute Hypoxia Acute Interstitial lung disease Acute
--- NOTE | 2019-01-05 17:03 | SOAPPROG ---
SOAP Progress Note Assessment/Plan: Assessment: INOCENTE, creat stable 1.6-1.8 past several says metastatic esophageal cancer, needs palliative chemo nausea and anorexia, says ice cream tastes good, I told him its OK with me depressed about his situation Plan: encouraged PO, likely will get PEG today to meet his nutritional needs continue other therapies gentle diuresis follow lytes vol and renal function 01/04/19 14:34 01/05/19 17:00 Subjective: feels about the same no cp sob nausea or vomiting appetite a bit better sleeping OK family at bedside, all questions answered Objective: Vital Signs Temp Pulse Resp BP Pulse Ox 37.1 C 110 H 16 119/72 91 L 01/05/19 15:54 01/05/19 15:54 01/05/19 15:54 01/05/19 15:54 01/05/19 15:54 Laboratory Results 01/05/19 04:39 01/05/19 04:39 01/04/19 01/05/19 01/06/19 05:59 05:59 05:59 Intake Total 1950 1535 Output Total 425 600 Balance 1525 935 PT 20.0 SEC (12.0-15.0) H 01/05/19 04:39 INR 1.69 (0.83-1.16) H 01/05/19 04:39 Physical Exam - Physical Exam General Appearance: alert, obese Neck: normal inspection Respiratory: rales, No rhonchi, No wheezing Cardiac/Chest: edema, systolic murmur, No friction rub Abdomen: normal bowel sounds, non-tender Extremities: swelling Neuro/Psych: alert, normal mood/affect, oriented x 3 ICD10 Worksheet Patient Problems: Problems Problem Status Onset Abdominal pain Acute Dehydration Acute Hyponatremia Acute Community acquired pneumonia Acute Hiatal hernia without gangrene and obstruction Acute Hypoxia Acute Interstitial lung disease Acute
[2019-01-05] MEDS: BUMETANIDE 1 MG TAB PO SCH (17:49)
--- NOTE | 2019-01-05 19:25 | SOAPPROG ---
GIOVANNI Progress Note Assessment/Plan: Assessment:Plan: 1) anatoliy mass - adenocarcinoma by path c/w his long standing GERD causing Perry's and progression to adenocarcinoma 2) Diet - tolerating liquid diet right now. Discussed options of PEG and stent and he would like to see how his PO nutrition is with treatment prior to stent ( which he prefers over PEG) 3) Tachy - I order EKG to make sure it is sinus tach and not Afib -- it is only sinus tach on EKG 4) Abnml Ct with some air in mesentery - unclear etiology, ?from coughing. ON abx as per Oncology 01/03/19 18:59 01/04/19 18:42 as above Nutrition - he prefers stent but may need PEG. I will discuss again tomorrow. I am a bit worried about pulling a PEg down his esophagus with his mass will return tomorrow 01/05/19 19:22 Spoke to IR today, they are worried about ir pEG and rec'd surgery I did just speak to Dr. Manjarrez who will see pt and likely place PEG tomorrow I will allow pt to have full liquids tonight I explained that this doesn't preclude stent in future if needed Subjective: cc- esoph mass with liver mets, dysphagia, need for PEG pt thought he was getting PEG tonight will be tomorrow Objective: Vital Signs Temp Pulse Resp BP Pulse Ox 37.1 C 110 H 16 119/72 91 L 01/05/19 15:54 01/05/19 15:54 01/05/19 15:54 01/05/19 15:54 01/05/19 15:54 Laboratory Results 01/05/19 04:39 01/05/19 04:39 01/04/19 01/05/19 01/06/19 05:59 05:59 05:59 Intake Total 1950 1535 Output Total 425 600 475 Balance 1525 935 -475 PT 20.0 SEC (12.0-15.0) H 01/05/19 04:39 INR 1.69 (0.83-1.16) H 01/05/19 04:39 A+Ox3 CTA S1S2 +BS, soft ICD10 Worksheet Patient Problems: Problems Problem Status Onset Abdominal pain Acute Dehydration Acute Hyponatremia Acute Community acquired pneumonia Acute Hiatal hernia without gangrene and obstruction Acute Hypoxia Acute Interstitial lung disease Acute
[2019-01-05] MEDS: oxyCODONE IR 5 MG TAB PO PRN ×2 (20:43→23:48)
[2019-01-05] MEDS: ONDANSETRON DISINTEGRATING 4 MG TAB PO PRN (23:52)
[2019-01-06 05:00] LABS: INR 1.8 (0.83-1.16)
[2019-01-06] MEDS: FLUTICASONE HFA 220 MCG MDI IH SCH ×2 (08:10→20:19)
[2019-01-06] MEDS: oxyCODONE IR 5 MG TAB PO PRN ×2 (08:15→21:02)
[2019-01-06] MEDS: INSULIN LISPRO 100 UNIT/ML SC SCH ×3 (08:24→17:44)
[2019-01-06] MEDS: guaiFENesin 600 MG TAB.ER PO SCH ×2 (09:34→21:01)
[2019-01-06] MEDS: PANTOPRAZOLE SODIUM 40 MG TAB PO SCH (09:34)
[2019-01-06] MEDS: BUMETANIDE 1 MG TAB PO SCH (09:34)
[2019-01-06] MEDS: SODIUM BICARBONATE 650 MG TAB PO SCH ×2 (09:34→21:01)
--- NOTE | 2019-01-06 11:02 | HOSPPROG ---
Hospitalist Progress Note Assessment/Plan: 63 yo M w likely metastatic esophageal cancer N/V - sx most c/w esophageal obstruction, EGD w mass; path + for adenocarcinoma NPO this am for surgical peg placement with Dr. Manjarrez metastatic esophageal carcinoma - awaiting treatment options from onc work on improving functional and nutritional status INOCENTE - had nl Cr 8 days ago, now up to 1.8 from 0.8, though stable past few days. FeNa was 0.7% on 12/31, now on Bumex, note rising BUN from 22 to 74 reviewed renal notes, cont bumex tachycardia - suspect component of volume depletion with diuresis and NPO status this am; VQ and US neg for clots; possibly d/t infection vs cancer burden follow, may need to give some volume back coagulopathy - suspect elevated INR (1.8) is secondary to hepatic dz FFP this am prior to surgery for INR reversal low tsh - suspect sick euthyroid, T4 nl, T3 low recheck as outpt when acute illness improved venous mesenteric gas, tachycardia, leukocytosis, elevated pct - s/p 5 days rocephin/flagyl - BCx NGTD recent pneumonia - likely aspiration given current pathology - no clear pna on CT chest FEN - peg tube today start trickle tube feeds tonight # dvt ppx - lovenox held this am for peg procedure # dispo - cont inpt Subjective: Pt is distressed, worried about his nutritional status. Feels worse now than when he got here. No N/V. No fevers. Pain controlled. He is anxious to get his peg. Objective: Vital Signs Temp Pulse Resp BP Pulse Ox 37.0 C 114 H 14 134/74 H 90 L 01/06/19 07:34 01/06/19 08:12 01/06/19 08:12 01/06/19 07:34 01/06/19 08:12 Laboratory Results 01/05/19 04:39 01/06/19 04:30 01/05/19 01/06/19 01/07/19 05:59 05:59 05:59 Intake Total 1535 500 Output Total 600 1025 Balance 935 -525 PT 21.0 SEC (12.0-15.0) H 01/06/19 04:30 INR 1.80 (0.83-1.16) H 01/06/19 04:30 - Physical Exam Constitutional: no apparent distress Eyes: PERRL Ears, Nose, Mouth, Throat: moist mucous membranes Cardiovascular: regular rate and rhythym Respiratory: no respiratory distress, clear to auscultation Gastrointestinal: normoactive bowel sounds, soft, non-tender abdomen Skin: warm Musculoskeletal: full muscle strength Neurologic: AAOx3 Psychiatric: interacting appropriately ICD10 Worksheet Patient Problems: Problems Problem Status Onset Abdominal pain Acute Dehydration Acute Hyponatremia Acute Community acquired pneumonia Acute Hiatal hernia without gangrene and obstruction Acute Hypoxia Acute Interstitial lung disease Acute
--- NOTE | 2019-01-06 11:21 | SOAPPROG ---
GIOVANNI Progress Note Assessment/Plan: Assessment: 63 male with metastatic esophageal cancer in need of feeding gastrostomy risks and options fully discussed and he wishes to proceed inr elevated mildly, will give 2 units ffp preop Plan:surgical gastrostomy 01/06/19 11:18 Objective: Vital Signs Temp Pulse Resp BP Pulse Ox 37.0 C 114 H 14 134/74 H 90 L 01/06/19 07:34 01/06/19 08:12 01/06/19 08:12 01/06/19 07:34 01/06/19 08:12 Laboratory Results 01/05/19 04:39 01/06/19 04:30 01/05/19 01/06/19 01/07/19 05:59 05:59 05:59 Intake Total 1535 500 Output Total 600 1025 Balance 935 -525 PT 21.0 SEC (12.0-15.0) H 01/06/19 04:30 INR 1.80 (0.83-1.16) H 01/06/19 04:30 ICD10 Worksheet Patient Problems: Problems Problem Status Onset Abdominal pain Acute Dehydration Acute Hyponatremia Acute Community acquired pneumonia Acute Hiatal hernia without gangrene and obstruction Acute Hypoxia Acute Interstitial lung disease Acute
--- NOTE | 2019-01-06 12:07 | SOAPPROG ---
GIOVANNI Progress Note Assessment/Plan: Assessment:Plan: 1) anatoliy mass - adenocarcinoma by path c/w his long standing GERD causing Perry's and progression to adenocarcinoma 2) Diet - tolerating liquid diet right now. Discussed options of PEG and stent and he would like to see how his PO nutrition is with treatment prior to stent ( which he prefers over PEG) 3) Tachy - I order EKG to make sure it is sinus tach and not Afib -- it is only sinus tach on EKG 4) Abnml Ct with some air in mesentery - unclear etiology, ?from coughing. ON abx as per Oncology 01/03/19 18:59 01/04/19 18:42 as above Nutrition - he prefers stent but may need PEG. I will discuss again tomorrow. I am a bit worried about pulling a PEg down his esophagus with his mass will return tomorrow 01/05/19 19:22 Spoke to IR today, they are worried about ir pEG and rec'd surgery I did just speak to Dr. Manjarrez who will see pt and likely place PEG tomorrow I will allow pt to have full liquids tonight I explained that this doesn't preclude stent in future if needed 01/06/19 12:05 1) PEG - pt to vhae surgical PEG today After he has had chemo/rt we could place esoph stent if needed at that time I will sign off. Subjective: cc-esoph cancer, liver mets dysphagia needs PEG pt on way to OR for PEG Objective: Vital Signs Temp Pulse Resp BP Pulse Ox 37.3 C 115 H 14 102/73 91 L 01/06/19 11:30 01/06/19 11:30 01/06/19 11:30 01/06/19 11:30 01/06/19 11:30 Laboratory Results 01/05/19 04:39 01/06/19 04:30 01/05/19 01/06/19 01/07/19 05:59 05:59 05:59 Intake Total 1535 500 Output Total 600 1025 Balance 935 -525 PT 21.0 SEC (12.0-15.0) H 01/06/19 04:30 INR 1.80 (0.83-1.16) H 01/06/19 04:30 +Bs, soft s1s2 cta ICD10 Worksheet Patient Problems: Problems Problem Status Onset Abdominal pain Acute Dehydration Acute Hyponatremia Acute Community acquired pneumonia Acute Hiatal hernia without gangrene and obstruction Acute Hypoxia Acute Interstitial lung disease Acute
[2019-01-06] MEDS ORDERED: MIDAZOLAM 2 MG/2 ML VIAL IVP ONE (12:09)
[2019-01-06] MEDS ORDERED: BUPIVACAINE 0.5% 30 ML SDV ONE (12:14)
[2019-01-06] MEDS ORDERED: PROPOFOL 200 MG/20 ML VIAL ONE ×2 (12:24)
[2019-01-06] MEDS ORDERED: fentaNYL 100 MCG/2 ML INJ ONE ×2 (12:24→14:37)
--- NOTE | 2019-01-06 12:28 | PDANEPAE ---
ANE Past Medical History - Cardiovascular History Hx Hypertension: No Hx Arrhythmias: No Hx Chest Pain: No Hx Coronary Artery / Peripheral Vascular Disease: No Hx CHF / Valvular Disease: No Hx Palpitations: Yes Cardiovascular History Comment: Sinus tachycardia - Pulmonary History Hx COPD: No Hx Asthma/Reactive Airway Disease: No Hx Recent Upper Respiratory Infection: Yes Hx Oxygen in Use at Home: Yes Hx Sleep Apnea: Yes Sleep Apnea Screening Result - Last Documented: Positive Pulmonary History Comment: ABX for pneumonia - Endocrine History Hx Diabetes: Yes Obesity: yes, moderate, severe - Renal History Hx Renal Disorders: Yes - Liver History Hx Hepatic Disorders: Yes - GI History Hx Gastrointestinal Disorders: Yes Gastrointestinal History Comment: Esophageal CA - Chronic Pain History Chronic Pain: No ANE Review of Systems Review of Systems: - Exercise capacity Exercise capacity: unable to assess ANE Patient History - Allergies Allergies/Adverse Reactions: No Known Allergies Allergy (Verified 12/30/18 04:31) - Home Medications Home medications: home medication list seen and reviewed Home Medications: Albuterol [Proventil Inhaler HFA (*)] 1 - 2 puffs IH Q4H PRN 12/30/18 [Last Taken 12/29/18] Codeine Phosphate/Guaifenesin [Guaifenesin-Codeine Syrup] 10 ml PO Q8HRS PRN 12/17 [Last Taken 12/30/18 00:00] Fluconazole [Diflucan] 200 mg PO DAILY 12/30/18 [Last Taken 12/29/18] Fluticasone Hfa 220 Mcg [Flovent 220 MCG Hfa MDI (*)] 2 puffs IH BID 12/30/18 [ Last Taken 12/29/18 21:00] Omeprazole 40 mg PO DAILY 12/30/18 [Last Taken 12/29/18] guaiFENesin [Mucinex 600 MG (*)] 600 mg PO BID 12/30/18 [Last Taken 12/29/18 21: 00] metFORMIN SR [Glucophage XR 500 mg (*)] 2,000 mg PO DAILY@1800 12/30/18 [Last Taken 12/29/18] - NPO status NPO Since - Liquids (Date): 01/06/19 NPO Since - Liquids (Time): 00:00 NPO Since - Solids (Date): 01/06/19 NPO Since - Solids (Time): 00:00 - Smoking Hx Smoking Status: Never smoked ANE Labs/Vital Signs - Labs Result Diagrams: 01/05/19 04:39 01/06/19 04:30 - Vital Signs Blood Pressure: 102/73 Heart Rate: 115 Respiratory Rate: 14 O2 Sat (%): 91 Height: 187.96 cm Weight: 131.542 kg ANE Physical Exam - Airway Neck exam: decreased ROM Mallampati Score: Class 3 Mouth exam: poor dentition, cervantes - Pulmonary Pulmonary: clear to auscultation, reduced air movement, respiratory distress - Cardiovascular Cardiovascular: tachycardia - ASA Status ASA Status: IV ANE Anesthesia Plan Anesthesia Plan: general endotracheal anesthesia Specialized Airway: video laryngoscope
[2019-01-06] MEDS ORDERED: SUCCINYLCHOLINE CHLORIDE 200 MG/10 ML SYR IVP ONE (12:36)
[2019-01-06] MEDS ORDERED: PHENYLEPHRINE HCL 100 MCG/ML SYR ONE (12:36)
[2019-01-06] MEDS ORDERED: cefOXitin SODIUM 2 GM in NS 100 ML IV ONE (13:00)
[2019-01-06] MEDS ORDERED: ONDANSETRON 4 MG/2 ML VIAL ONE (13:07)
[2019-01-06] MEDS ORDERED: MEPERIDINE 25 MG/0.5 ML AMP IVP PRN (13:18)
[2019-01-06] MEDS ORDERED: ONDANSETRON 4 MG/2 ML VIAL IVP PRN (13:18)
[2019-01-06] MEDS ORDERED: PROMETHAZINE HCL 25 MG/ML INJ IVP PRN (13:18)
[2019-01-06] MEDS ORDERED: LR 500 ML IV PRN (13:18)
[2019-01-06] MEDS ORDERED: DIAZEPAM 5 MG/ML 1 ML SYR IVP PRN (13:18)
[2019-01-06] MEDS ORDERED: NALOXONE HCL 0.4 MG/ML INJ IVP PRN (13:18)
[2019-01-06] MEDS ORDERED: METOCLOPRAMIDE 10 MG/2 ML VIAL IVP PRN (13:18)
[2019-01-06] MEDS ORDERED: fentaNYL 100 MCG/2 ML INJ IVP PRN (13:18)
[2019-01-06] MEDS ORDERED: ALTEPLASE 2 MG VIAL IVP PRN (13:26)
--- NOTE | 2019-01-06 13:26 | SOAPPROG ---
SOAP Progress Note Assessment/Plan: Assessment/Plan: 63yo M with PMH significant for obesity, DM II, RCC s/p nephrectomy in [address] scan and abdominal ultrasound on admission concerning for esophageal cancer with liver mets as well as INOCENTE 2/2 to possible hepatorenal physiology. 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 Please contact if ?'s, #[phone] 01/06/19 13:24 Subjective: Made more >1 L UO yesterday. Feeling ok. Objective: Vital Signs Temp Pulse Resp BP Pulse Ox 36.9 C 121 H 14 114/73 86 L 01/06/19 12:30 01/06/19 12:30 01/06/19 12:30 01/06/19 12:30 01/06/19 12:30 Laboratory Results 01/05/19 04:39 01/06/19 04:30 01/05/19 01/06/19 01/07/19 05:59 05:59 05:59 Intake Total 1535 500 Output Total 600 1025 Balance 935 -525 PT 21.0 SEC (12.0-15.0) H 01/06/19 04:30 INR 1.80 (0.83-1.16) H 01/06/19 04:30 Physical Exam - Physical Exam General Appearance: alert, no apparent distress EENT: PERRL/EOMI Neck: non-tender, full range of motion, supple Respiratory: chest non-tender, normal breath sounds Cardiac/Chest: normal peripheral pulses, regular rate, rhythm, edema Abdomen: normal bowel sounds, non-tender, soft, distended Skin: warm/dry, pallor Extremities: normal range of motion Neuro/Psych: alert, normal mood/affect, oriented x 3 ICD10 Worksheet Patient Problems: Problems Problem Status Onset Abdominal pain Acute Dehydration Acute Hyponatremia Acute Community acquired pneumonia Acute Hiatal hernia without gangrene and obstruction Acute Hypoxia Acute Interstitial lung disease Acute
--- NOTE | 2019-01-06 13:29 | SOAPPROG ---
GIOVANNI Progress Note Assessment/Plan: Assessment: Edi is a very pleasant 63-year-old male who was found to have likely esophageal cancer with metastatic disease within the liver. 1. Metastatic esophageal adenoCA - he needs palliative chemo, but at the moment there are a couple of issues that a standing in the way of starting therapy. The first is his renal insufficiency and the second is his poor nutritional status. Most of the regimens we an use are [place] based, which will be a challenge if he has unstable and worsening renal function. Ideally, we also need to know his HER2 status to know if adding Herceptin is appropriate or not. His creatinine is 1.8 today. I wrote for FOLFOX to start on Wednesday 2. Decreased p.o. Intake: He is having a worsening time with oral intake - even fluids. I would recommend a PEG tube. This is being placed by Dr. Manjarrez today. 3. Renal failure: Creatinine 1.8 4. Tachycardia: Likely multifactorial Plan: - check HER2 on biopsy when available - PEG tube today - Start FOLFOX on 09 JAN 2019 - Empiric abx Subjective: Patient not at the bedside. I spoke with his family. Objective: Vital Signs Temp Pulse Resp BP Pulse Ox 36.9 C 121 H 14 114/73 86 L 01/06/19 12:30 01/06/19 12:30 01/06/19 12:30 01/06/19 12:30 01/06/19 12:30 Laboratory Results 01/05/19 04:39 01/06/19 04:30 01/04/19 01/05/19 01/06/19 23:59 23:59 23:59 Intake Total 1725 410 300 Output Total 800 525 550 Balance 925 -115 -250 PT 21.0 SEC (12.0-15.0) H 01/06/19 04:30 INR 1.80 (0.83-1.16) H 01/06/19 04:30 ICD10 Worksheet Patient Problems: Problems Problem Status Onset Abdominal pain Acute Dehydration Acute Hyponatremia Acute Community acquired pneumonia Acute Hiatal hernia without gangrene and obstruction Acute Hypoxia Acute Interstitial lung disease Acute
--- NOTE | 2019-01-06 13:50 | POSTOPPROG ---
Post Op Note Date of Operation: 01/06/19 Surgeon: Edy Manjarrez Regrinder Operator: Lisa Anesthesiologist: Fe Anesthesia: GET(General Endotracheal) Pre-op Diagnosis: Esophageal mass Post-op Diagnosis: same, liver metastases Indication: Dysphagia Procedure: Open gastrostomy tube placment, liver biopsy Findings: Good flow. Numerous liver jose alberto Inf/Abcess present in the surg proc area at time of surgery?: No Depth: Organ Space EBL: Minimal Specimen(s): Liver biopsy- permanent
--- NOTE | 2019-01-06 13:56 | POSTANESTH ---
Post Anesthetic Evaluation Cardiovascular Status: Normal, Stable Respiratory Status: Similar to Pre-op Cond. Level of Consciousness/Mental Status: Mildly Sleepy, Arousable Pain Control: Adequate, Prn Tx Ordered Nausea/Vomiting Control: Adequate, Prn Tx Ordered Complications Possibly Related to Anesthesia: None Noted
[2019-01-06] MEDS: ONDANSETRON 4 MG/2 ML VIAL IVP PRN (17:44)
[2019-01-06] MEDS: HYDROmorphONE/DILAUDID 1 MG/ML INJ IVP PRN (17:44)
[2019-01-07] MEDS: oxyCODONE IR 5 MG TAB PO PRN ×2 (01:42→09:28)
[2019-01-07 05:58] LABS: PLATELET COUNT 102 10^3/uL (150-400)
[2019-01-07] MEDS ORDERED: NS 1,000 ML IV SCH (06:30)
[2019-01-07] MEDS: HYDROmorphONE/DILAUDID 1 MG/ML INJ IVP PRN ×4 (08:34→20:58)
[2019-01-07] MEDS: FLUTICASONE HFA 220 MCG MDI IH SCH (08:50)
--- NOTE | 2019-01-07 09:07 | HOSPPROG ---
Hospitalist Progress Note Assessment/Plan: 63 yo M w metastatic esophageal cancer, condition has rapidly deteriorated, now in multi-organ system failure. 30 minutes spent with 12 family members today addressing goals of care. , Renea, TERRYOA and mother, along with all his siblings agree that pt would not want a poor QOL prolonged. They believe he would wish to be kept comfortable with no further aggressive interventions. Ultimately, they've opted for comfort care measures with hospice consult. This is appropriate given his incurable cancer with rapid decline. N/V - sx most c/w esophageal obstruction, EGD w mass; path + for adenocarcinoma peg tube placed yesterday metastatic esophageal carcinoma - oncology explained to today his cancer is incurable and he is not currently a candidate for chemo given multi-system organ failure INOCENTE - pre-renal / intravascularly dry vs hepatorenal has not responded to 1L NS plus albumin boluses hyperkalemia - in setting of acute renal failure tachycardia - ? component of volume depletion with diuresis and poor intake; VQ and US neg for clots; possibly d/t infection vs cancer burden hypoxemia - O2 requirement up to 5 LPM form 2 LPM worse despite diuresis coagulopathy - suspect elevated INR (1.8) is secondary to hepatic dz FFP yest for INR reversal prior to peg vit k today per onc thrombocytopenia - plts dropped from 300's to 100, unclear etiology follow for now, doubt hit with lovenox low tsh - suspect sick euthyroid, T4 nl, T3 low venous mesenteric gas, tachycardia, leukocytosis, elevated pct - s/p 5 days rocephin/flagyl completed 01/05 - BCx NGTD hyperglycemia - unclear if underlying diabetes or possibly stress response to acute illness, bg's 200's - had planned to add insulin, but will defer with comfort measures planned recent pneumonia - likely aspiration given current pathology - no clear pna on CT chest FEN - peg tube, tube feeds as tolerated, could consider d/c'ing this # dvt ppx - d/c heparin for comfort # dispo - cont inpt, comfort measures only. hospice eval. will remain here through the weekend. discussed he may pass away within next 48-72 hrs Subjective: Pt more delirious, increased O2 requirement and SOB. Unable to express pain level, but having a hard time finding position of comfort. + diarrhea. no fevers. Objective: Vital Signs Temp Pulse Resp BP Pulse Ox 37.6 C 120 H 20 114/65 90 L 01/07/19 07:41 01/07/19 07:41 01/07/19 07:41 01/07/19 07:41 01/07/19 07:41 Laboratory Results 01/07/19 05:00 01/07/19 05:00 01/06/19 01/07/19 01/08/19 05:59 05:59 05:59 Intake Total 500 1000 Output Total 1025 85 Balance -525 915 PT 21.0 SEC (12.0-15.0) H 01/06/19 04:30 INR 1.80 (0.83-1.16) H 01/06/19 04:30 - Physical Exam Constitutional: no apparent distress Eyes: PERRL Ears, Nose, Mouth, Throat: dry mucous membranes Cardiovascular: tachycardia Respiratory: no respiratory distress, reduced air movement Gastrointestinal: other (soft, mild distention, +TTP, no r/r/g) Skin: warm Musculoskeletal: other (3+ LE pitting edema) Psychiatric: encephalopathic ICD10 Worksheet Patient Problems: Problems Problem Status Onset Abdominal pain Acute Dehydration Acute Hyponatremia Acute Community acquired pneumonia Acute Hiatal hernia without gangrene and obstruction Acute Hypoxia Acute Interstitial lung disease Acute
[2019-01-07] MEDS: INSULIN LISPRO 100 UNIT/ML SC SCH ×2 (09:25→13:18)
[2019-01-07] MEDS: PANTOPRAZOLE SODIUM 40 MG TAB PO SCH (09:27)
[2019-01-07] MEDS: SODIUM BICARBONATE 650 MG TAB PO SCH (09:27)
[2019-01-07] MEDS: guaiFENesin 600 MG TAB.ER PO SCH (09:27)
[2019-01-07] MEDS ORDERED: HEPARIN 5,000 UNIT/0.5 ML INJ SC SCH (09:30)
[2019-01-07] MEDS ORDERED: PHYTONADIONE 2.5 MG/2.5 ML ORAL UDL PO ONE (10:09)
--- NOTE | 2019-01-07 10:09 | SOAPPROG ---
SOAP Progress Note Assessment/Plan: Assessment: SOAP Progress Note Assessment/Plan: Assessment: Edi is a very pleasant 63-year-old male who was found to have esophageal cancer with metastatic disease within the liver. 1. Metastatic esophageal adenoCA - Lengthy conversation with patient's re prognosis with metastatic disease. Discussed that disease is incurable, treatment is palliative. Performance status is markedly decreased today. Worsening renal function. Hypoxic, increased confusion. ? infection. Hopsitatlist is evaluating. Chemotherapy inappropriate at the moment. Reportedly extensive peritoneal disease at the time of G tube placement. Liver biopsy done. 2. PEG tube-placed yesterday. Tolerating low rate. 3. Renal failure: Worsening renal function. Renal following, ? prerenal, ? hepatorenal. 4. Thrombocyopenia-platelets much lower today? Will check for DIC. he has received lovenox, but no unfractionated heparin. 5. Prolonged INR-will check for DIC and give trial of vit K. suspect due to poor liver function. Plan: - check HER2 on biopsy when available - Discussed with Dr. Mars. - check fibrinogen, follow cbc -trial of vit K - will check HIT, but unlikely with lovenox Plan: 01/07/19 09:42 01/07/19 11:39 Subjective: complains of back pain, Objective: Vital Signs Temp Pulse Resp BP Pulse Ox 37.6 C 120 H 20 114/65 90 L 01/07/19 07:41 01/07/19 07:41 01/07/19 07:41 01/07/19 07:41 01/07/19 07:41 Laboratory Results 01/07/19 05:00 01/07/19 05:00 01/06/19 01/07/19 01/08/19 05:59 05:59 05:59 Intake Total 500 1000 Output Total 1025 85 Balance -525 915 PT 21.0 SEC (12.0-15.0) H 01/06/19 04:30 INR 1.80 (0.83-1.16) H 01/06/19 04:30 Physical Exam - Physical Exam General Appearance: mild distress Neck: supple Respiratory: other (decreased breath sounds anteriorly) Abdomen: non-tender, soft, other (G tube in place, normal bowel sounds) Extremities: pedal edema (3-4+) ICD10 Worksheet Patient Problems: Problems Problem Status Onset Abdominal pain Acute Dehydration Acute Hyponatremia Acute Community acquired pneumonia Acute Hiatal hernia without gangrene and obstruction Acute Hypoxia Acute Interstitial lung disease Acute
--- NOTE | 2019-01-07 11:28 | SOAPPROG ---
SOAP Progress Note Assessment/Plan: Assessment/Plan: 63yo M with PMH significant for obesity, DM II, RCC s/p nephrectomy in [address] scan and abdominal ultrasound on admission concerning for esophageal cancer with liver mets as well as INOCENTE with possible hepatorenal physiology in addition to uncontrolled blood sugars. 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 BS's still in 200's. Worried about kidneys. Objective: Vital Signs Temp Pulse Resp BP Pulse Ox 37.6 C 120 H 20 114/65 90 L 01/07/19 07:41 01/07/19 07:41 01/07/19 07:41 01/07/19 07:41 01/07/19 07:41 Laboratory Results 01/07/19 05:00 01/07/19 05:00 01/06/19 01/07/19 01/08/19 05:59 05:59 05:59 Intake Total 500 1000 Output Total 1025 85 Balance -525 915 PT 21.0 SEC (12.0-15.0) H 01/06/19 04:30 INR 1.80 (0.83-1.16) H 01/06/19 04:30 Physical Exam - Physical Exam General Appearance: WD/WN, alert, mild distress EENT: PERRL/EOMI Neck: non-tender, full range of motion, supple Respiratory: chest non-tender, decreased breath sounds Cardiac/Chest: regular rate, rhythm, edema Abdomen: normal bowel sounds, non-tender, soft, distended Skin: pallor Extremities: normal range of motion, non-tender Neuro/Psych: alert, oriented x 3 ICD10 Worksheet Patient Problems: Problems Problem Status Onset Abdominal pain Acute Dehydration Acute Hyponatremia Acute Community acquired pneumonia Acute Hiatal hernia without gangrene and obstruction Acute Hypoxia Acute Interstitial lung disease Acute
[2019-01-07] MEDS ORDERED: INSULIN GLARGINE 100 UNITS/ML UNIT SC SCH (11:45)
[2019-01-07] MEDS: ENOXAPARIN 40 MG/0.4 ML SYR SC SCH (11:50)
[2019-01-07] MEDS ORDERED: ALBUMIN 25% 100 ML IV SCH (12:00)
--- NOTE | 2019-01-07 12:56 | SOAPPROG ---
GIOVANNI Progress Note Assessment/Plan: Assessment: 63yo M c esophageal mass s/p open G tube placement - clinically looks worse today - is tolerating feeds, abdomen is soft and is having some flatus - if appropriate would advance feeds to goal - discussed with Sebastien that there were extensive liver mets which were biopsied. Plan: 01/07/19 12:55 01/07/19 12:56 Subjective: tolerating feeds Objective: Vital Signs Temp Pulse Resp BP Pulse Ox 37.6 C 120 H 20 114/65 90 L 01/07/19 07:41 01/07/19 07:41 01/07/19 07:41 01/07/19 07:41 01/07/19 07:41 Laboratory Results 01/07/19 05:00 01/07/19 05:00 01/06/19 01/07/19 01/08/19 05:59 05:59 05:59 Intake Total 500 1000 Output Total 1025 85 Balance -525 915 PT 21.0 SEC (12.0-15.0) H 01/06/19 04:30 INR 1.80 (0.83-1.16) H 01/06/19 04:30 ICD10 Worksheet Patient Problems: Problems Problem Status Onset Abdominal pain Acute Dehydration Acute Hyponatremia Acute Community acquired pneumonia Acute Hiatal hernia without gangrene and obstruction Acute Hypoxia Acute Interstitial lung disease Acute
[2019-01-07] MEDS: ONDANSETRON 4 MG/2 ML VIAL IVP PRN (13:12)
[2019-01-07 13:14] VITALS: BP 112/64
[2019-01-07] MEDS ORDERED: ATROPINE 1% 5 ML OPHT.BTL SL PRN (13:31)
[2019-01-07] MEDS ORDERED: LORazepam 2 MG/ML INJ IVP PRN (13:31)
[2019-01-07] MEDS ORDERED: HALOPERIDOL LACT 5 MG/ML INJ IVP PRN (13:31)
--- NOTE | 2019-01-07 16:33 | ASMTCMCOM ---
CM Note CM Note Notes: Pt's condition has declined and an order for hospice has been placed. Spoke with family - they have a friend who is a shoe parts caser they would like to talk with before making a decision regarding a hospice agency. Pt is on comfort care now. CM will continue to follow for d/c needs. D/C plan: hospice Date Signed: 01/07/2019 04:32 PM Electronically Signed By:SANDRA Shah
[2019-01-08] MEDS: FLUTICASONE HFA 220 MCG MDI IH SCH ×2 (01:35→10:00)
[2019-01-08] MEDS: HYDROmorphONE/DILAUDID 1 MG/ML INJ IVP PRN (03:16)
--- NOTE | 2019-01-08 10:40 | PDPCPN ---
Palliative Care Progress Note Assessment/Plan: Assessment: [facility] [address] [place] [id number] (O) [phone](F) PALLIATIVE CARE NOTE NAME: Edi Choe : 57 VISIT TYPE: Initial LOCATION: [facility] LEVEL OF CARE: Hospice eligible DIAGNOSES: 1. Metastatic esophageal adenocarcinoma 2. Diabetes CC: Initial palliative care visit HPI: Mister Choe is a 63-year-old male who is admitted in November and treated for possible pneumonia. Over the last week he has had increasing difficulty swallowing with significant nausea vomiting and early satiety. He was admitted and a CT scan indicated esophageal thickening. Biopsy is positive for esophageal adenocarcinoma. He is scheduled for a PEG placement today for nutritional support. He has had significant decline in mobility and strength. PMH: 1. Metastatic esophageal adenocarcinoma 2. Diabetes ALLERGIES: No known drug allergies FAMILY HISTORY: SOCIAL HISTORY: Lives with his . PATIENT GOALS OF CARE: 1. Increase activity and strength 2. Initiate treatment ACTIVE SYMPTOMS/ASSESSMENTS/RECOMMENDATIONS: 1. Esophageal adenocarcinoma C15.9: Newly diagnosed with metastatic disease. Treatment has not been initiated at this time. MODIFIED [place] SYMPTOM ASSESSMENT SCALE: 0-none; 1-3 mild; 4-6 moderate; 7-10 severe Unable to Respond: No [ ] Delirium: 0-none Depression: 0-none Anxiety: 0none Tiredness (fatigue): 5-Mod Drowsiness (sleepiness): 0-none Pain: 3 Nausea: 3 Anorexia: 0-none Shortness of Breath: 0-none Secretions: 0-none Constipation: 0-none Symptom and side effect management: (acceptable to patient and family) OBJECTIVE FINDINGS Palliative Performance Score: 60 FAST: Not applicable NYHA: n/a Vital Signs: Wt: MAC: Neuro: A&O to person, place, time and event; HEENT: Normocephalic; atraumatic RESP: Regular, deep, symmetrical. No cough or wheezing CV: +3 lower extremity edema extending to the mid thigh GI: soft, round : no dysuria or hematuria MSK: Well nourished. 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 TIME SPENT: [id number] 70 min >50% of the time spent counseling, educating and coordinating the above topics. Humberto Scherer [facility] Plan: 01/08/19 10:39 Objective: Vital Signs Temp Pulse Resp BP Pulse Ox 37.4 C 0 L 0 L 112/64 90 L 01/07/19 12:00 01/08/19 06:45 01/08/19 06:45 01/07/19 12:00 01/07/19 12:00 Laboratory Results 01/07/19 05:00 01/07/19 05:00 01/07/19 01/08/19 01/09/19 05:59 05:59 05:59 Intake Total 1000 0 Output Total 85 0 Balance 915 0 PT 21.0 SEC (12.0-15.0) H 01/06/19 04:30 INR 1.80 (0.83-1.16) H 01/06/19 04:30 ICD10 Worksheet Patient Problems: Problems Problem Status Onset Abdominal pain Acute Dehydration Acute Hyponatremia Acute Community acquired pneumonia Acute Hiatal hernia without gangrene and obstruction Acute Hypoxia Acute Interstitial lung disease Acute
--- NOTE | 2019-01-08 14:08 | PDDCSUM ---
Discharge Summary Discharge Summary: Summary Date of admission: 12/30/2018 Date of : 01/08/2019 at 0645 Hospital course: Pt presented with abdominal pain, nausea and vomiting. Workup revealed esophageal thickening and biopsy obtained via EGD confirmed adenocarcinoma. He was also found to have liver metastases. He underwent peg placement and started tube feeds. Shortly after this surgery, his condition rapidly deteriorated. He developed multi-system organ failure with hepatic failure, renal failure and respiratory failure. He was evaluated by renal, but was not a candidate for dialysis. His , Renea, with support of many family members, opted to pursue comfort care measures after it became clear that he had an incurable cancer and was too sick to have chemotherapy. He peacefully with his at the bedside at 0645 on 01/08/2019.
--- NOTE | 2019-01-09 10:00 | CPEKG ---
Test Reason : OPEN Blood Pressure : / mmHG Vent. Rate : 121 BPM Atrial Rate : 120 BPM P-R Int : 133 ms QRS Dur : 083 ms QT Int : 294 ms P-R-T Axes : 203 -14 -30 degrees QTc Int : 417 ms SVT, likely atrial tachycardia Confirmed by Kurt Strange ([id number]) on 01/09/2019 9:59:33 AM Referred By: Corky Rosa Confirmed By:Kurt Strange
--- NOTE | 2019-01-11 11:51 | CPEKG ---
Test Reason : OPEN Blood Pressure : / mmHG Vent. Rate : 113 BPM Atrial Rate : 114 BPM P-R Int : 176 ms QRS Dur : 088 ms QT Int : 331 ms P-R-T Axes : 062 069 040 degrees QTc Int : 454 ms Sinus tachycardia Atrial premature complex Probable left atrial enlargement Confirmed by Kurt Strange ([id number]) on 01/11/2019 11:51:02 AM Referred By: Corky Rosa Confirmed By:Kurt Strange
== END 2019-01-08 13:05 | disposition expired | DRG 326 ==
LOC: F1N 11:39 → OBSVTOIN 12-31 10:41 → F1N 01-07 18:01
PROVIDERS: ADMIT Student in an Organized Health Care Education/Training Program; ATTEND Student in an Organized Health Care Education/Training Program
PROC: 0DB38ZX Excision of Lower Esophagus, Via Natural or Artificial Opening Endoscopic, Diagnostic (ICD-10-PCS; 2019-01-02)
PROC: 0DB28ZX Excision of Middle Esophagus, Via Natural or Artificial Opening Endoscopic, Diagnostic (ICD-10-PCS; 2019-01-02)
PROC: 02HV33Z Insertion of Infusion Device into Superior Vena Cava, Percutaneous Approach (ICD-10-PCS; 2019-01-06)
PROC: 0DH60UZ Insertion of Feeding Device into Stomach, Open Approach (ICD-10-PCS; principal; 2019-01-06 14:00)
PROC: 0FB00ZX Excision of Liver, Open Approach, Diagnostic (ICD-10-PCS; principal; 2019-01-06 14:00)
DX: C15.9 Malignant neoplasm of esophagus, unspecified (principal); J96.90 Respiratory failure, unspecified, unspecified whether with hypoxia or hypercapnia; N17.9 Acute kidney failure, unspecified; C78.7 Secondary malignant neoplasm of liver and intrahepatic bile duct; Z51.5 Encounter for palliative care; K72.90 Hepatic failure, unspecified without coma; E86.0 Dehydration; E66.01 Morbid (severe) obesity due to excess calories; I10 Essential (primary) hypertension; E11.9 Type 2 diabetes mellitus without complications; Z79.4 Long term (current) use of insulin; E87.5 Hyperkalemia; Z85.528 Personal history of other malignant neoplasm of kidney; Z90.5 Acquired absence of kidney
CPT/HCPCS: 82435-PO; 82565-PO; 82947-PO; 84132-PO; 84295-PO; 84480-90; 84481-90; 84520-PO; 85014-ER; 96374; 97116-GP; 97161-GP; 97530-GP; A9540; C1751; G0378; J0330; J0694; J0696; J1170; J1644; J1650; J1815; J1940; J2250; J2370; J2405; J2550; J2704; J3010; P9016; P9017; P9047; Q9967